=== PATIENT | female | born 1980 | race Hispanic/Latino ===

== ENCOUNTER 2016-11-11 23:11 | Inpatient (IN) | payer MEDICAID ==
[2016-11-11 23:42] LABS: RBC URINE 4 /hpf (0-3); URINE BACTERIA MANY (<OCC); URINE BILIRUBIN NEGATIVE (NEGATIVE); URINE BLOOD 1+ (NEGATIVE); URINE COLOR Yellow (YELLOW); URINE GLUCOSE (UA) NORMAL (Normal); URINE KETONE 1+ mg/dL (NEGATIVE); URINE LEUKOCYTE ESTERASE 3+ Leu/uL (Negative); URINE PROTEIN 1+ mg/dL (NEGATIVE); URINE UROBILINOGEN NORMAL mg/dL (0.2-1.0); WBC URINE 87 /hpf (0-5)
[2016-11-11] MEDS ORDERED: Sodium Chloride 0.9% 1,000 ML IV ONE (23:50)
[2016-11-11] MEDS ORDERED: Iohexol 240 (50 ml) PO ONE (23:53)
[2016-11-12] MEDS ORDERED: Nalbuphine 20 mg/ml Inj (1 ml) IVP STA ×2 (00:11→04:07)
[2016-11-12] MEDS ORDERED: Sodium Chloride 0.9% 1,000 ML ONE ×2 (00:13→06:28)
[2016-11-12] MEDS ORDERED: Iohexol 240 (50 ml) ONE (00:13)
[2016-11-12] MEDS ORDERED: Iohexol 350mg/ml 100 ML ONE (01:00)
--- NOTE | 2016-11-12 01:11 | C.PDOC ---
History Of Present Illness 36 year old female who presents to the ER with a complaint of RUQ pain radiating to the back since yesterday associated with some nausea. Patient denies vomiting, fever, chills, or diarrhea. Chief Complaint (Nursing): Abdominal Pain History Per: Patient History/Exam Limitations: no limitations Onset/Duration Of Symptoms: Hrs Current Symptoms Are (Timing): Still Present Location Of Pain/Discomfort: RUQ Radiation Of Pain To:: None Quality Of Discomfort: Unable To Describe Associated Symptoms: Nausea, Back Pain. denies: Fever, Chills, Vomiting, Diarrhea Exacerbating Factors: None Alleviating Factors: None Recent travel outside of the [place]: No Abnormal Vaginal Bleeding: No Past Medical History Reviewed: Historical Data, Nursing Documentation, Vital Signs Vital Signs: Last Vital Signs Temp 98.2 F 11/12/16 02:17 Pulse 89 11/12/16 02:17 Resp 20 11/12/16 02:17 BP 123/70 11/12/16 02:17 Pulse Ox 98 11/12/16 04:09 - Medical History PMH: Anxiety, Asthma, HTN, Kidney Stones, Pancreatitis, Chronic Kidney Disease, Seizures Surgical History: No Surg Hx - [facility] Procedures INSERTION OF INFUSION DEV INTO R SUBCLAV VEIN, PERC APPROACH (06/23/15) ULTRASONOGRAPHY OF RIGHT SUBCLAVIAN VEIN, GUIDANCE (06/23/15) Family History: States: Unknown Family Hx - Social History Hx Tobacco Use: Yes Hx Alcohol Use: Yes Hx Substance Use: Yes (HEROIN) - Immunization History Hx Tetanus Toxoid Vaccination: No Hx Influenza Vaccination: Yes Hx Pneumococcal Vaccination: No Review Of Systems Constitutional: Negative for: Fever, Chills Gastrointestinal: Positive for: Nausea, Abdominal Pain. Negative for: Vomiting , Diarrhea Musculoskeletal: Positive for: Back Pain Physical Exam - Physical Exam Appears: Non-toxic, Other (Mild distress) Skin: Normal Color, Warm, Dry Head: Atraumatic, Normacephalic Oral Mucosa: Moist Neck: Normal, Supple Chest: Symmetrical, No Tenderness Cardiovascular: Rhythm Regular, No Murmur Respiratory: Normal Breath Sounds, No Rales, No Rhonchi, No Wheezing Gastrointestinal/Abdominal: Soft, Tenderness (RUQ), No Guarding, No Rebound Back: Normal Inspection, No Vertebral Tenderness, No Paraspinal Tenderness Neurological/Psych: Oriented x3, Normal Speech, Normal Cognition ED Course And Treatment - Laboratory Results Result Diagrams: 11/12/16 01:30 11/12/16 01:30 O2 Sat by Pulse Oximetry: 98 (Room air) Pulse Ox Interpretation: Normal Progress Note: CT abd/pel and blood work ordered. Zofran, nubain, and IV fluids administered. Disposition Discussed With DrChato: Aleksey Cedeno Doctor Will See Patient In The: Hospital Counseled Patient/Family Regarding: Diagnosis - Disposition Disposition: HOSPITALIZED Disposition Time: 04:08 Condition: STABLE Forms: [employer] (Lebanese) - POA Present On Arrival: None - Clinical Impression Clinical Impression: Pyelonephritis, Right sided abdominal pain - Scribe Statement The provider has reviewed the documentation as recorded by the Scribe Sharif Tucker All medical record entries made by the Scribe were at my direction and personally dictated by me. I have reviewed the chart and agree that the record accurately reflects my personal performance of the history, physical exam, medical decision making, and the department course for this patient. I have also personally directed, reviewed, and agree with the discharge instructions and disposition.
[2016-11-12 01:35] LABS: BASO % 0.4 % (0.0-2.0); EOS % 0.2 % (0.0-4.0); HEMATOCRIT 30.6 % (34.0-47.0); LYMPH % 17.2 % (20.0-40.0); MEAN CELL VOLUME 93.4 fL (81.0-99.0); MEAN CORPUSCULAR HEMOGLOBIN 30.8 pg (27.0-31.0); MONO # 0.8 K/uL (0.0-0.8); MONO % 13.4 % (0.0-10.0); RED CELL DISTRIBUTION WIDTH 13.8 % (11.5-14.5)
[2016-11-12 01:41] LABS: WHITE BLOOD COUNT 5.9 K/uL (4.8-10.8)
[2016-11-12 02:11] LABS: ALB/GLOB RATIO 0.8 (1.0-2.1); ALKALINE PHOSPHATASE 57 U/L (38-126); ALT/SGPT 20 U/L (9-52); AST/SGOT 24 U/L (14-36); BILIRUBIN,TOTAL 0.6 mg/dL (0.2-1.3); BLOOD UREA NITROGEN 4 mg/dL (7-17); CALCIUM 6.4 mg/dl (8.6-10.4); CARBON DIOXIDE 14 mmol/L (22-30); CHLORIDE 111 mmol/L (98-107); GFR AFRICAN-AMERICAN > 60; GLUCOSE,RANDOM 74 mg/dL (65-105); SODIUM 138 mmol/L (132-148); TOTAL PROTEIN 5.6 g/dL (6.3-8.3)
[2016-11-12 02:13] LABS: POTASSIUM 3.1 mmol/L (3.6-5.2)
[2016-11-12] MEDS ORDERED: Ciprofloxacin 400mg/200ml D5W 400 MG/200 ML BAG IVPB STA (03:32)
--- NOTE | 2016-11-12 03:52 | CT ---
EXAM: CT Abdomen and Pelvis With Intravenous Contrast CLINICAL HISTORY: 36 years old, female; Pain; Abdominal pain; Patient HX: 3; Additional info: Upper abd pain TECHNIQUE: Axial computed tomography images of the abdomen and pelvis with intravenous contrast. This CT exam was performed using one or more of the following dose reduction techniques: automated exposure control, adjustment of the mA and/or kV according to patient size, and/or use of iterative reconstruction technique. Coronal and sagittal reformatted images were created and reviewed. CONTRAST: 100 mL of [id number] administered intravenously. EXAM DATE/TIME: 11/11/2016 11:54 PM COMPARISON: CT - ABD PELVIS IV CONTRAST ONLY 07/02/2015 2:08:12 PM FINDINGS: There is hepatosplenomegaly. Left upper quadrant varices are present. The pancreas is normal. The previously described hypoattenuating area the pancreatic tail is not well seen on current study. No gallstones. There is right perinephric stranding. There are faint areas of low attenuation in the right kidney new since prior. No hydronephrosis. The bowel appears normal. The appendix is not identified however there are no secondary signs of appendicitis such as pericecal stranding. There is artifact secondary to right femoral hardware. Minimal spondylolisthesis L4-5 unchanged. IMPRESSION: Right perinephric stranding. Faint areas of low attenuation in the right kidney. Findings supportive of right pyelonephritis. Nonacute findings as described in the body of the report.
[2016-11-12] MEDS: Sodium Chloride 0.9% 1,000 ML IV SCH (06:25)
[2016-11-12] MEDS: Ciprofloxacin 400mg/200ml D5W 400 MG/200 ML BAG IVPB SCH ×2 (07:38→16:28)
[2016-11-12] MEDS ORDERED: Potassium Chloride 20 mEq ER Tab PO SCH ×2 (08:45→12:01)
[2016-11-12] MEDS ORDERED: Potassium Chloride 20 mEq ER Tab PO ONE (08:52)
[2016-11-12] MEDS ORDERED: [UNRECOGNIZED DRUG - OTHER] IV SCH (17:30)
[2016-11-12] MEDS ORDERED: THIAMINE IV SCH (17:30)
[2016-11-12] MEDS ORDERED: MULTIVITAMIN IV SCH (17:30)
[2016-11-12] MEDS ORDERED: FOLIC ACID IV SCH (17:30)
[2016-11-13] MEDS: Sodium Chloride 0.9% 1,000 ML IV SCH ×2 (01:02→14:59)
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
[2016-11-13] MEDS: Ciprofloxacin 400mg/200ml D5W 400 MG/200 ML BAG IVPB SCH ×2 (05:29→17:22)
[2016-11-13 06:16] LABS: BASO % 0.1 % (0.0-2.0); EOS % 0.5 % (0.0-4.0); HEMATOCRIT 32.2 % (34.0-47.0); LYMPH # 1.7 K/uL (1.0-4.3); LYMPH % 31.2 % (20.0-40.0); MEAN CELL VOLUME 90.7 fL (81.0-99.0); MEAN CORPUSCULAR HEMOGLOBIN 30.8 pg (27.0-31.0); MEAN PLATELET VOLUME 8.9 fL (7.2-11.7); MONO # 0.8 K/uL (0.0-0.8); RED CELL DISTRIBUTION WIDTH 13.5 % (11.5-14.5); WHITE BLOOD COUNT 5.5 K/uL (4.8-10.8)
[2016-11-13 06:30] LABS: ALKALINE PHOSPHATASE 65 U/L (38-126); ALT/SGPT 24 U/L (9-52); AST/SGOT 13 U/L (14-36); BILIRUBIN,TOTAL 0.1 mg/dL (0.2-1.3); BLOOD UREA NITROGEN 6 mg/dL (7-17); CALCIUM 7.9 mg/dl (8.6-10.4); CARBON DIOXIDE 26 mmol/L (22-30); CHLORIDE 103 mmol/L (98-107); GFR AFRICAN-AMERICAN > 60; GLUCOSE,RANDOM 124 mg/dL (65-105); POTASSIUM 4.2 mmol/L (3.6-5.2); SODIUM 135 mmol/L (132-148); TOTAL PROTEIN 5.8 g/dL (6.3-8.3)
[2016-11-13] MEDS: Potassium Chloride 20 mEq ER Tab PO SCH (10:48)
--- NOTE | 2016-11-14 01:46 | CP.PCM.PN ---
Subjective - Date & Time of Evaluation Date of Evaluation: 11/13/16 Time of Evaluation: 11:02 - Subjective Subjective: FEELS R FLANK PAIN, NO NAUSEA, UDOA POSITIVE Objective - Vital Signs/Intake and Output Vital Signs (last 24 hours): Temp Pulse Resp BP Pulse Ox 98.8 F 102 H 20 115/70 98 11/13/16 23:15 11/13/16 23:15 11/13/16 23:15 11/13/16 23:15 11/13/16 23:15 Intake and Output: 11/13/16 11/14/16 18:59 06:59 Intake Total 1400 Balance 1400 - Medications Medications: Current Medications Acetaminophen (Tylenol 325mg Tab) 650 mg PO Q6 PRN PRN Reason: Pain, moderate (4-7) Last Admin: 11/13/16 03:11 Dose: 650 mg Amitriptyline HCl (Elavil) 10 mg PO HS PRN PRN Reason: Insomnia Stop: 11/14/16 04:44 Last Admin: 11/13/16 21:41 Dose: 10 mg Folic Acid (Folic Acid) 1 mg PO DAILY [facility] Gabapentin (Neurontin) 300 mg PO TID [facility] Last Admin: 11/13/16 17:21 Dose: 300 mg Sodium Chloride (Sodium Chloride 0.9%) 1,000 mls @ 100 mls/hr IV .Q10H [facility] Last Admin: 11/13/16 14:59 Dose: 100 mls/hr Ciprofloxacin (Cipro 400mg/200ml Dsw) 400 mg in 200 mls @ 133 mls/hr IVPB Q12H [facility] Last Admin: 11/13/16 17:22 Dose: 133 mls/hr Lorazepam (Ativan) 1 mg IVP Q6H PRN PRN Reason: Anxiety Last Admin: 11/13/16 23:45 Dose: 1 mg Potassium Chloride (K-Dur 20 Meq Er Tab) 20 meq PO DAILY [facility] Stop: 11/15/16 10:01 Last Admin: 11/13/16 10:48 Dose: 20 meq Thiamine HCl (Vitamin B1 Tab) 100 mg PO DAILY [facility] Last Admin: 11/13/16 11:00 Dose: 100 mg - Labs Labs: 11/13/16 06:02 11/13/16 06:02 - Constitutional Appears: Non-toxic, No Acute Distress - Head Exam Head Exam: ATRAUMATIC, NORMAL INSPECTION, NORMOCEPHALIC - Eye Exam Eye Exam: EOMI, Normal appearance Pupil Exam: NORMAL ACCOMODATION - ENT Exam ENT Exam: Mucous Membranes Moist, Normal Exam, Normal Oropharynx, TM's Normal Bilaterally - Respiratory Exam Respiratory Exam: Clear to Ausculation Bilateral, NORMAL BREATHING PATTERN - Cardiovascular Exam Cardiovascular Exam: REGULAR RHYTHM, +S1, +S2 - GI/Abdominal Exam GI & Abdominal Exam: Normal Bowel Sounds - Rectal Exam Rectal Exam: NORMAL INSPECTION Assessment and Plan (1) Pyelonephritis Assessment & Plan: ON ANTIBIOTICS Status: Acute (2) Alcohol intoxication Status: Resolved (3) Anxiety Status: Chronic
[2016-11-14] MEDS: Ciprofloxacin 400mg/200ml D5W 400 MG/200 ML BAG IVPB SCH ×2 (04:51→18:12)
[2016-11-14] MEDS: Sodium Chloride 0.9% 1,000 ML IV SCH ×3 (06:54→21:22)
[2016-11-14] MEDS: Potassium Chloride 20 mEq ER Tab PO SCH (09:39)
[2016-11-14 20:14] LABS: RBC URINE 1 /hpf (0-3); URINE BILIRUBIN NEGATIVE (NEGATIVE); URINE BLOOD NEGATIVE (NEGATIVE); URINE COLOR Yellow (YELLOW); URINE GLUCOSE (UA) NORMAL (Normal); URINE KETONE NEGATIVE (NEGATIVE); URINE LEUKOCYTE ESTERASE NEG Leu/uL (Negative); URINE PROTEIN NEGATIVE (NEGATIVE); URINE UROBILINOGEN NORMAL mg/dL (0.2-1.0); WBC URINE 2 /hpf (0-5)
--- NOTE | 2016-11-14 23:56 | CP.PCM.PN ---
Subjective - Date & Time of Evaluation Date of Evaluation: 11/14/16 Time of Evaluation: 11:14 - Subjective Subjective: PAIN IN L FLANK, NO SOB, ANXIOUS Objective - Vital Signs/Intake and Output Vital Signs (last 24 hours): Temp Pulse Resp BP Pulse Ox 97.6 F 70 20 105/65 97 11/14/16 17:47 11/14/16 17:47 11/14/16 17:47 11/14/16 17:47 11/14/16 17:47 Intake and Output: 11/14/16 11/15/16 18:59 06:59 Intake Total 1000 Balance 1000 - Medications Medications: Current Medications Acetaminophen (Tylenol 325mg Tab) 650 mg PO Q6 PRN PRN Reason: Pain, moderate (4-7) Last Admin: 11/14/16 04:50 Dose: 650 mg Chlordiazepoxide (Librium) 25 mg PO Q6 [facility] Last Admin: 11/14/16 18:12 Dose: 25 mg Folic Acid (Folic Acid) 1 mg PO DAILY [facility] Last Admin: 11/14/16 09:39 Dose: 1 mg Gabapentin (Neurontin) 300 mg PO TID [facility] Last Admin: 11/14/16 18:12 Dose: 300 mg Sodium Chloride (Sodium Chloride 0.9%) 1,000 mls @ 100 mls/hr IV .Q10H [facility] Last Admin: 11/14/16 21:22 Dose: 100 mls/hr Lorazepam (Ativan) 1 mg IVP Q6H PRN PRN Reason: Anxiety Last Admin: 11/14/16 18:55 Dose: 1 mg Potassium Chloride (K-Dur 20 Meq Er Tab) 20 meq PO DAILY [facility] Stop: 11/15/16 10:01 Last Admin: 11/14/16 09:39 Dose: 20 meq Thiamine HCl (Vitamin B1 Tab) 100 mg PO DAILY [facility] Last Admin: 11/14/16 09:39 Dose: 100 mg - Labs Labs: 11/13/16 06:02 11/13/16 06:02 - Constitutional Appears: Non-toxic, No Acute Distress - Head Exam Head Exam: ATRAUMATIC, NORMAL INSPECTION, NORMOCEPHALIC - Eye Exam Eye Exam: Normal appearance, PERRL Pupil Exam: NORMAL ACCOMODATION - Respiratory Exam Respiratory Exam: Clear to Ausculation Bilateral, NORMAL BREATHING PATTERN - GI/Abdominal Exam GI & Abdominal Exam: Soft, Normal Bowel Sounds - Psychiatric Exam Psychiatric exam: Anxious, Depressed, Flat Affect - Skin Skin Exam: Intact Assessment and Plan (1) Pyelonephritis Assessment & Plan: ESBL POSITIVE ORGANISMS, ON ISOLATION AND MACROBID Status: Acute (2) Alcohol intoxication Status: Resolved (3) Anxiety Status: Chronic
[2016-11-15] MEDS: Sodium Chloride 0.9% 1,000 ML IV SCH (03:37)
[2016-11-15] MEDS: Potassium Chloride 20 mEq ER Tab PO SCH (09:22)
--- NOTE | 2016-11-15 18:34 | CP.PCM.CON ---
History of Present Illness - History of Present Illness History of Present Illness: Please see Initial Psych consult note. Thank you Past Patient History - Infectious Disease Hx of Infectious Diseases: None - Past Medical History & Family History Past Medical History?: Yes - Past Social History Smoking Status: Heavy Smoker > 10 Cigarettes Daily - CARDIAC Hx Cardiac Disorders: Yes Hx Hypertension: Yes - PULMONARY Hx Respiratory Disorders: Yes Hx Asthma: Yes - NEUROLOGICAL Hx Neurological Disorder: Yes Hx Seizures: Yes - HEENT Hx HEENT Problems: No - RENAL Hx Chronic Kidney Disease: Yes Hx Kidney Stones: Yes - ENDOCRINE/METABOLIC Hx Endocrine Disorders: No - HEMATOLOGICAL/ONCOLOGICAL Hx Human Immunodeficiency Virus (HIV): No - INTEGUMENTARY Hx Dermatological Problems: No - MUSCULOSKELETAL/RHEUMATOLOGICAL Hx Musculoskeletal Disorders: No Hx Falls: No Other/Comment: right hip sx (adelfo and plates) - GASTROINTESTINAL Hx Gastrointestinal Disorders: No Hx Pancreatitis: Yes - GENITOURINARY/GYNECOLOGICAL Hx Genitourinary Disorders: No Hx Sexually Transmitted Disorders: No - PSYCHIATRIC Hx Anxiety: Yes Hx Substance Use: Yes (HEROIN) - SURGICAL HISTORY Hx Orthopedic Surgery: Yes (hip surgery) - ANESTHESIA Hx Anesthesia: Yes Hx Anesthesia Reactions: No Hx Malignant Hyperthermia: No Meds Allergies/Adverse Reactions: Allergies Allergy/AdvReac Type Severity Reaction Status Date / Time Fish Containing Products Allergy Intermediate Verified 06/23/15 12:24 ketorolac tromethamine Allergy Intermediate Verified 06/23/15 12:23 [From Toradol] morphine Allergy Intermediate Verified 06/23/15 12:23 - Medications Medications: Current Medications Acetaminophen (Tylenol 325mg Tab) 650 mg PO Q6 PRN PRN Reason: Pain, moderate (4-7) Last Admin: 11/14/16 04:50 Dose: 650 mg Chlordiazepoxide (Librium) 25 mg PO Q6 [facility] Last Admin: 11/15/16 13:00 Dose: 25 mg Folic Acid (Folic Acid) 1 mg PO DAILY [facility] Last Admin: 11/15/16 09:21 Dose: 1 mg Gabapentin (Neurontin) 300 mg PO TID [facility] Last Admin: 11/15/16 13:39 Dose: 300 mg Lorazepam (Ativan) 1 mg IVP Q6H PRN PRN Reason: Anxiety Last Admin: 11/15/16 15:15 Dose: 1 mg Nitrofurantoin Macrocrystals (Macrobid) 100 mg PO Q12H [facility] Last Admin: 11/15/16 12:30 Dose: 100 mg Thiamine HCl (Vitamin B1 Tab) 100 mg PO DAILY [facility] Last Admin: 11/15/16 09:21 Dose: 100 mg Results - Vital Signs Recent Vital Signs: Last Vital Signs Temp 97.6 F 11/15/16 16:00 Pulse 60 11/15/16 16:00 Resp 20 11/15/16 16:00 BP 94/58 L 11/15/16 16:00 Pulse Ox 96 11/15/16 16:00 - Labs Result Diagrams: 11/13/16 06:02 11/13/16 06:02 Labs: Laboratory Results - last 24 hr 11/14/16 19:57 Urine Color Yellow Urine Clarity Clear Urine pH 7.0 Ur Specific [place] 1.010 Urine Protein Negative Urine Glucose (UA) Normal Urine Ketones Negative Urine Blood Negative Urine Nitrate Negative Urine Bilirubin Negative Urine Urobilinogen Normal Ur Leukocyte Esterase Neg Urine WBC (Auto) 2 Urine RBC (Auto) 1 Ur Squamous Epith Cells 7 H
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
--- NOTE | 2016-11-15 22:41 | CP.PCM.PN ---
Subjective - Date & Time of Evaluation Date of Evaluation: 11/15/16 Time of Evaluation: 11:19 - Subjective Subjective: SEEN BY PSYCHE , D/W DR KAT Objective - Vital Signs/Intake and Output Vital Signs (last 24 hours): Temp Pulse Resp BP Pulse Ox 97.6 F 60 20 94/58 L 96 11/15/16 16:00 11/15/16 16:00 11/15/16 16:00 11/15/16 16:00 11/15/16 16:00 - Medications Medications: Current Medications Acetaminophen (Tylenol 325mg Tab) 650 mg PO Q6 PRN PRN Reason: Pain, moderate (4-7) Last Admin: 11/15/16 20:07 Dose: 650 mg Chlordiazepoxide (Librium) 25 mg PO Q6 [facility] Last Admin: 11/15/16 18:34 Dose: 25 mg Folic Acid (Folic Acid) 1 mg PO DAILY [facility] Last Admin: 11/15/16 09:21 Dose: 1 mg Gabapentin (Neurontin) 300 mg PO TID [facility] Last Admin: 11/15/16 18:34 Dose: 300 mg Lorazepam (Ativan) 1 mg IVP Q6H PRN PRN Reason: Anxiety Last Admin: 11/15/16 21:18 Dose: 1 mg Nitrofurantoin Macrocrystals (Macrobid) 100 mg PO Q12H [facility] Last Admin: 11/15/16 12:30 Dose: 100 mg Thiamine HCl (Vitamin B1 Tab) 100 mg PO DAILY [facility] Last Admin: 11/15/16 09:21 Dose: 100 mg - Labs Labs: 11/13/16 06:02 11/13/16 06:02 - Constitutional Appears: Non-toxic, No Acute Distress - Head Exam Head Exam: ATRAUMATIC, NORMAL INSPECTION, NORMOCEPHALIC - Eye Exam Eye Exam: EOMI, Normal appearance, PERRL Pupil Exam: NORMAL ACCOMODATION - ENT Exam ENT Exam: Mucous Membranes Moist, Normal Exam, Normal Oropharynx, TM's Normal Bilaterally - Neck Exam Neck Exam: Normal Inspection - Respiratory Exam Respiratory Exam: Clear to Ausculation Bilateral, NORMAL BREATHING PATTERN - Cardiovascular Exam Cardiovascular Exam: REGULAR RHYTHM, +S1, +S2 - GI/Abdominal Exam GI & Abdominal Exam: Normal Bowel Sounds Assessment and Plan (1) Pyelonephritis Status: Acute (2) Alcohol intoxication Status: Resolved (3) Anxiety Status: Chronic
[2016-11-16 08:20] VITALS: RESP 18; TEMP 97.9; O2SAT 98
[2016-11-16] MEDS ORDERED: Iohexol 350mg/ml 100 ML ONE (15:34)
--- NOTE | 2016-11-16 15:36 | CP.PCM.PN ---
Subjective - Date & Time of Evaluation Date of Evaluation: 11/16/16 Time of Evaluation: 11:25 - Subjective Subjective: Pt seen today , alert, awake, ox3, c/o mild R flank pain , denies any N/V/D a febrile Objective - Vital Signs/Intake and Output Vital Signs (last 24 hours): Temp Pulse Resp BP Pulse Ox 97.9 F 67 18 129/82 98 11/16/16 07:10 11/16/16 07:10 11/16/16 07:10 11/16/16 07:10 11/16/16 07:10 - Medications Medications: Current Medications Acetaminophen (Tylenol 325mg Tab) 650 mg PO Q6 PRN PRN Reason: Pain, moderate (4-7) Last Admin: 11/16/16 08:13 Dose: 650 mg Folic Acid (Folic Acid) 1 mg PO DAILY [facility] Last Admin: 11/16/16 09:34 Dose: 1 mg Gabapentin (Neurontin) 300 mg PO TID [facility] Last Admin: 11/16/16 14:51 Dose: Not Given Nitrofurantoin Macrocrystals (Macrobid) 100 mg PO Q12H [facility] Last Admin: 11/16/16 12:12 Dose: 100 mg Thiamine HCl (Vitamin B1 Tab) 100 mg PO DAILY [facility] Last Admin: 11/16/16 09:34 Dose: 100 mg - Labs Labs: 11/13/16 06:02 11/13/16 06:02 - Constitutional Appears: Well, No Acute Distress - Extremities Exam Extremities Exam: Full ROM Assessment and Plan - Assessment and Plan (Free Text) Assessment: A/P 36 yr old female admitted for abdominal pain/ pylonephritis urine culture - + for E coli and sensitive to macrobid and pt started on macrobid repeat u/a - negative D/W with Dr. cedeno, stable for discharge home today with macrobid and f/u with Dr. Cedeno office in 1 week discharge plan discussed with patient
[2016-11-16 17:22] VITALS: BP 106/67; PULSE 68
--- NOTE | 2016-11-16 22:34 | CP.PCM.DIS ---
Provider - Provider Date of Admission: 11/12/16 04:37 Attending physician: Aleksey Cedeno MD Time Spent in preparation of Discharge (in minutes): 30 Diagnosis - Discharge Diagnosis (1) Pyelonephritis Status: Acute Priority: High (2) Alcohol intoxication Status: Resolved Priority: High (3) Anxiety Status: Chronic Priority: Medium Hospital Course - Lab Results Lab Results: Micro Results 11/12/16 Unknown Urine Urine Culture - Final Escherichia Coli Most Recent Lab Values WBC 5.5 K/uL (4.8-10.8) 11/13/16 06:02 RBC 3.55 Mil/uL (3.80-5.20) L 11/13/16 06:02 Hgb 10.9 g/dL (11.0-16.0) L 11/13/16 06:02 Hct 32.2 % (34.0-47.0) L 11/13/16 06:02 MCV 90.7 fL (81.0-99.0) D 11/13/16 06:02 MCH 30.8 pg (27.0-31.0) 11/13/16 06:02 MCHC 34.0 g/dL (33.0-37.0) 11/13/16 06:02 RDW 13.5 % (11.5-14.5) 11/13/16 06:02 Plt Count 145 K/uL (130-400) 11/13/16 06:02 MPV 8.9 fL (7.2-11.7) 11/13/16 06:02 Neut % (Auto) 53.2 % (50.0-75.0) 11/13/16 06:02 Lymph % (Auto) 31.2 % (20.0-40.0) 11/13/16 06:02 Crockett % (Auto) 15.0 % (0.0-10.0) H 11/13/16 06:02 Eos % (Auto) 0.5 % (0.0-4.0) 11/13/16 06:02 Baso % (Auto) 0.1 % (0.0-2.0) 11/13/16 06:02 Neut # 2.9 K/uL (1.8-7.0) 11/13/16 06:02 Lymph # 1.7 K/uL (1.0-4.3) 11/13/16 06:02 Crockett # 0.8 K/uL (0.0-0.8) 11/13/16 06:02 Eos # 0.0 K/uL (0.0-0.7) 11/13/16 06:02 Baso # 0.0 K/uL (0.0-0.2) 11/13/16 06:02 Sodium 135 mmol/L (132-148) 11/13/16 06:02 Potassium 4.2 mmol/L (3.6-5.2) 11/13/16 06:02 Chloride 103 mmol/L (98-107) 11/13/16 06:02 Carbon Dioxide 26 mmol/L (22-30) 11/13/16 06:02 Anion Gap 10 (10-20) 11/13/16 06:02 BUN 6 mg/dL (7-17) L 11/13/16 06:02 Creatinine 0.6 MG/DL (0.7-1.2) L 11/13/16 06:02 Est GFR ( Amer) > 60 11/13/16 06:02 Est GFR (Non-Af Amer) > 60 11/13/16 06:02 Random Glucose 124 mg/dL (65-105) H 11/13/16 06:02 Calcium 7.9 mg/dl (8.6-10.4) L 11/13/16 06:02 Total Bilirubin 0.1 mg/dL (0.2-1.3) L 11/13/16 06:02 AST 13 U/L (14-36) L D 11/13/16 06:02 ALT 24 U/L (9-52) 11/13/16 06:02 Alkaline Phosphatase 65 U/L (38-126) 11/13/16 06:02 Total Protein 5.8 g/dL (6.3-8.3) L 11/13/16 06:02 Albumin 2.9 g/dL (3.5-5.0) L 11/13/16 06:02 Globulin 2.9 gm/dL (2.2-3.9) 11/13/16 06:02 Albumin/Globulin Ratio 1.0 (1.0-2.1) 11/13/16 06:02 Lipase < 10 U/L (23-300) L 11/12/16 01:30 Urine Color Yellow (YELLOW) 11/14/16 19:57 Urine Clarity Clear (Clear) 11/14/16 19:57 Urine pH 7.0 (5.0-8.0) 11/14/16 19:57 Ur Specific Fountain 1.010 (1.003-1.030) 11/14/16 19:57 Urine Protein Negative mg/dL (NEGATIVE) 11/14/16 19:57 Urine Glucose (UA) Normal mg/dL (Normal) 11/14/16 19:57 Urine Ketones Negative mg/dL (NEGATIVE) 11/14/16 19:57 Urine Blood Negative (NEGATIVE) 11/14/16 19:57 Urine Nitrate Negative (NEGATIVE) 11/14/16 19:57 Urine Bilirubin Negative (NEGATIVE) 11/14/16 19:57 Urine Urobilinogen Normal mg/dL (0.2-1.0) 11/14/16 19:57 Ur Leukocyte Esterase Neg Wilder/uL (Negative) 11/14/16 19:57 Urine WBC (Auto) 2 /hpf (0-5) 11/14/16 19:57 Urine RBC (Auto) 1 /hpf (0-3) 11/14/16 19:57 Ur Squamous Epith Cells 7 /hpf (0-5) H 11/14/16 19:57 Urine Bacteria Many (<OCC) H 11/11/16 23:35 Urine HCG, Qual Negative (NEGATIVE) 11/11/16 23:35 Urine Opiates Screen Positive (NEGATIVE) 11/12/16 21:49 Urine Methadone Screen Positive (NEGATIVE) 11/12/16 21:49 Ur Barbiturates Screen Negative (NEGATIVE) 11/12/16 21:49 Ur Phencyclidine Scrn Positive (NEGATIVE) 11/12/16 21:49 Ur Amphetamines Screen Negative (NEGATIVE) 11/12/16 21:49 U Benzodiazepines Scrn Negative (NEGATIVE) 11/12/16 21:49 U Oth Cocaine Metabols Negative (NEGATIVE) 11/12/16 21:49 U Cannabinoids Screen Negative (NEGATIVE) 11/12/16 21:49 - Hospital Course Hospital Course: ADMITTED WITH ACUTE PYELONEPHRITIS AND SHE HAS ESBL + E.COLI, SENSITIVE OT MACROBID , FEESL BETTER, AND SHE IS FOR DISCHARGE Discharge Exam - Head Exam Head Exam: ATRAUMATIC, NORMAL INSPECTION, NORMOCEPHALIC - Eye Exam Eye Exam: EOMI, Normal appearance, PERRL Pupil Exam: NORMAL ACCOMODATION - Neck Exam Neck exam: Normal Inspection - Respiratory Exam Respiratory Exam: NORMAL BREATHING PATTERN - Cardiovascular Exam Cardiovascular Exam: REGULAR RHYTHM, +S1, +S2 - GI/Abdominal Exam GI & Abdominal Exam: Normal Bowel Sounds, Unremarkable - Rectal Exam Rectal Exam: NORMAL INSPECTION - Extremities Exam Extremities exam: normal capillary refill, pedal pulses present - Neurological Exam Neurological exam: Alert, CN II-XII Intact, Normal Gait, Oriented x3, Reflexes Normal - Psychiatric Exam Psychiatric exam: Anxious - Skin Skin Exam: Intact Discharge Plan - Discharge Medications Prescriptions: Nitrofurantoin Macrocrystals [Macrobid] 100 mg PO Q12H #10 cap - Follow Up Plan Condition: STABLE Disposition: HOME/ ROUTINE Instructions: Nitrofurantoin Combination (By mouth), Urinary Tract Infection in Women (DC), Acute Pyelonephritis (DC) Additional Instructions: Please f/u with Dr. Cedeno office in 1 week continue medication as per Med. Rec. Referrals: Aleksey Cedeno MD [Staff Provider] -
== END 2016-11-16 17:40 | disposition home or self-care (01) | DRG 320 ==
LOC: C.ER 23:11 → C.9E 11-12 04:37 → C.6T 11-12 12:16
PROVIDERS: ADMIT Internal Medicine; ATTEND Internal Medicine
DX: N10 Acute pyelonephritis (principal); R56.9 Unspecified convulsions; F11.90 Opioid use, unspecified, uncomplicated; F10.120 Alcohol abuse with intoxication, uncomplicated; F41.9 Anxiety disorder, unspecified; N18.9 Chronic kidney disease, unspecified; J45.909 Unspecified asthma, uncomplicated; I12.9 Hypertensive chronic kidney disease with stage 1 through stage 4 chronic kidney disease, or unspecified chronic kidney disease; F17.210 Nicotine dependence, cigarettes, uncomplicated; Z87.442 Personal history of urinary calculi; Y90.9 Presence of alcohol in blood, level not specified; B96.20 Unspecified Escherichia coli [E. coli] as the cause of diseases classified elsewhere

== ENCOUNTER 2017-01-30 02:11 | Emergency (ER) | payer MEDICAID ==
[2017-01-30] MEDS ORDERED: Amoxicillin-Clav 875-125 mg Tab PO STA (02:55)
[2017-01-30] MEDS ORDERED: Amoxicillin-Clav 875-125 mg Tab PO ONE (03:01)
--- NOTE | 2017-01-30 03:16 | C.PDOC ---
History Of Present Illness 36 year old female presents to the ER for a complaint of a painful rash since Wednesday night. Patient reports she smoked "2-3 pulls" of an unknown substance from an unknown man who occasionally smokes in front of her house. Patient states a few hours after smoking she "did not feel right". Denies Hx of recent heroin use, fever, or chills. Time Seen by Provider: 01/30/17 02:22 Chief Complaint (Nursing): Abnormal Skin Integrity History Per: Patient History/Exam Limitations: no limitations Onset/Duration Of Symptoms: Days Current Symptoms Are (Timing): Still Present Quality Of Symptoms: Other (Irritating rash) Recent travel outside of the [place]: No Past Medical History Reviewed: Historical Data, Nursing Documentation, Vital Signs Vital Signs: Last Vital Signs Temp 97.9 F 01/30/17 03:18 Pulse 114 H 01/30/17 03:18 Resp 20 01/30/17 03:18 BP 133/86 01/30/17 03:18 Pulse Ox 95 01/30/17 03:18 - Medical History PMH: Anxiety, Asthma, HTN, Kidney Stones, Pancreatitis, Chronic Kidney Disease, Seizures Surgical History: No Surg Hx - [facility] Procedures INSERTION OF INFUSION DEV INTO R SUBCLAV VEIN, PERC APPROACH (06/23/15) ULTRASONOGRAPHY OF RIGHT SUBCLAVIAN VEIN, GUIDANCE (06/23/15) Family History: States: Unknown Family Hx - Social History Hx Tobacco Use: Yes Hx Alcohol Use: Yes Hx Substance Use: Yes (HEROIN) - Immunization History Hx Tetanus Toxoid Vaccination: No Hx Influenza Vaccination: Yes Hx Pneumococcal Vaccination: No Review Of Systems Constitutional: Negative for: Fever, Chills Skin: Positive for: Rash Physical Exam - Physical Exam Appears: Non-toxic Skin: Warm, Dry, Rash (Multiple open, tender, erythematous, wounds to the bilateral extremities. Plaque like, erythematous, tender, scales to dorsal hands with yellow crusting and honey combing.) Head: Atraumatic, Normacephalic Eye(s): bilateral: Normal Inspection, EOMI Oral Mucosa: Moist Chest: Symmetrical, No Tenderness Cardiovascular: Rhythm Regular Respiratory: Normal Breath Sounds, No Rales, No Rhonchi, No Wheezing Gastrointestinal/Abdominal: Soft, No Tenderness Neurological/Psych: Oriented x3, Normal Speech, Normal Cognition ED Course And Treatment O2 Sat by Pulse Oximetry: 98 (Room air) Pulse Ox Interpretation: Normal Medical Decision Making Medical Decision Making: Augmentin and benadryl administered. Patient evaluated by Dr. Zeng, who believes patient is safe to be discharged home on antibiotics and follow up with PMD. Disposition - Disposition Referrals: [facility] at [facility] [Outside] Disposition: HOME/ ROUTINE Disposition Time: 03:06 Condition: GOOD Additional Instructions: Follow up with the medical doctor within 1-2 days. Return if worsened. Prescriptions: Amoxicillin/Clavulanate [Augmentin 875 MG-125 MG] 1 tab PO BID #20 tab Mupirocin 2% Cream [Bactroban 2%] 30 gm EXT TID #3 tube Instructions: Impetigo (ED) Forms: [employer] (Divehi) - Clinical Impression Clinical Impression: Cellulitis, Impetigo - Scribe Statement The provider has reviewed the documentation as recorded by the Scribe Sharif Tucker All medical record entries made by the Mickeyibe were at my direction and personally dictated by me. I have reviewed the chart and agree that the record accurately reflects my personal performance of the history, physical exam, medical decision making, and the department course for this patient. I have also personally directed, reviewed, and agree with the discharge instructions and disposition.
[2017-01-30 03:18] VITALS: BP 133/86; PULSE 114; RESP 20; TEMP 97.9
[2017-01-30] MEDS ORDERED: Bacitracin 500 Units/gm Oint Foilpak UD ONE (03:37)
[2017-01-30 04:31] VITALS: O2SAT 98
== END 2017-01-30 04:07 | disposition home or self-care (01) ==
LOC: C.ER 02:11
DX: L03.90 Cellulitis, unspecified (principal); L01.00 Impetigo, unspecified

== ENCOUNTER 2017-09-27 18:54 | Emergency (ER) | payer MEDICAID ==
[2017-09-27 19:03] VITALS: BP 107/65; PULSE 69; RESP 18; TEMP 98.5; O2SAT 98
[2017-09-27] MEDS ORDERED: Amoxicillin-Clav 875-125 mg Tab PO STA (19:40)
[2017-09-27] MEDS ORDERED: Amoxicillin-Clav 875-125 mg Tab PO ONE (19:49)
--- NOTE | 2017-09-27 20:10 | C.PDOC ---
History Of Present Illness 37 year old female presents to the ER stating she placed a tongue piercing on three days ago and as of one day ago patient began having pain and swelling to the distal tongue. denies fever, trauma, or bleeding. Time Seen by Provider: 09/27/17 19:07 Chief Complaint (Nursing): Abnormal Skin Integrity History Per: Patient History/Exam Limitations: no limitations Onset/Duration Of Symptoms: Days Current Symptoms Are (Timing): Still Present Location Of Injury: Anterior: Mouth (Distal tongue) Quality Of Symptoms: Painful, Swollen Recent travel outside of the [place]: No Past Medical History Reviewed: Historical Data, Nursing Documentation, Vital Signs Vital Signs: Last Vital Signs Temp 98.5 F 09/27/17 19:00 Pulse 69 09/27/17 19:00 Resp 18 09/27/17 19:00 BP 107/65 09/27/17 19:00 Pulse Ox 98 09/27/17 22:55 - Medical History PMH: Anxiety, Asthma, HTN, Kidney Stones, Pancreatitis, Chronic Kidney Disease, Seizures - [facility] Procedures INSERTION OF INFUSION DEV INTO R SUBCLAV VEIN, PERC APPROACH (06/23/15) ULTRASONOGRAPHY OF RIGHT SUBCLAVIAN VEIN, GUIDANCE (06/23/15) Family History: States: Unknown Family Hx - Social History Hx Tobacco Use: Yes Hx Alcohol Use: Yes Hx Substance Use: No (HEROIN) - Immunization History Hx Tetanus Toxoid Vaccination: No Hx Influenza Vaccination: Yes Hx Pneumococcal Vaccination: No Review Of Systems Constitutional: Negative for: Fever, Chills Eyes: Negative for: Pain ENT: Positive for: Mouth Pain (Distal tongue) Cardiovascular: Negative for: Edema Respiratory: Negative for: Cough Skin: Negative for: Rash Neurological: Negative for: Weakness, Numbness Physical Exam - Physical Exam Appears: Non-toxic Skin: Normal Color, Warm, Dry Head: Atraumatic, Normacephalic Eye(s): bilateral: Normal Inspection Nose: Normal Oral Mucosa: Moist Tongue: Other (White with a red base surrounding the piercing site with swelling and tenderness. At the distal tip of the tongue) Lips: Normal Appearing, No Swelling Gingiva: Normal Appearing Throat: Normal, No Erythema Neck: Normal ROM, Supple Lymphatic: Normal Exam, No Adenopathy Chest: Symmetrical, No Tenderness Cardiovascular: Rhythm Regular Respiratory: Normal Breath Sounds, No Accessory Muscle Use Extremity: Normal ROM Neurological/Psych: Oriented x3, Normal Speech Gait: Steady ED Course And Treatment O2 Sat by Pulse Oximetry: 98 (RA) Pulse Ox Interpretation: Normal Medical Decision Making Medical Decision Making: Patient highly advised to remove tongue piercing as there is a possibility of infection, however, patient refuses to remove piercing. Discussed the risks and benefits of removing piercing with the patient, but she still refuses to remove the piercing. Patient is aaox3, she understands the risks, will discharge home with Rx for antibiotics and advised to follow up with PMD or return if symptoms worsen. Disposition - Disposition Referrals: [facility] at [facility] [Outside] Disposition: HOME/ ROUTINE Disposition Time: 20:08 Condition: STABLE Additional Instructions: REMOVE THE PIERCING! Follow up with the medical doctor within 1-2 days without fail. Return if worsened. 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 - Scribe Statement The provider has reviewed the documentation as recorded by the Scribe Sharif Tucker All medical record entries made by the Mickeyibe were at my direction and personally dictated by me. I have reviewed the chart and agree that the record accurately reflects my personal performance of the history, physical exam, medical decision making, and the department course for this patient. I have also personally directed, reviewed, and agree with the discharge instructions and disposition.
[2017-09-27] MEDS ORDERED: Acetaminophen-Codeine 300/30 mg Tab PO STA (20:14)
== END 2017-09-27 20:17 | disposition home or self-care (01) ==
LOC: C.ER 18:54
DX: K14.0 Glossitis (principal)

== ENCOUNTER 2017-10-20 12:26 | Emergency (ER) | payer MEDICAID ==
[2017-10-20 12:36] VITALS: BMI 24.2
[2017-10-20 12:40] VITALS: RESP 20
[2017-10-20] MEDS ORDERED: Sodium Chloride 0.9% 1,000 ML IV ONE ×2 (13:29)
--- NOTE | 2017-10-20 13:33 | C.PDOC ---
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 Patient states she had similar episode 1 month ago and was taken to hospital, given IV Ketamine. Patient admits to no urine output since yesterday and currently denies diarrhea , weakness, headache or any other complaints at this time. Time Seen by Provider: 10/20/17 12:55 Chief Complaint (Nursing): Abdominal Pain History Per: Patient History/Exam Limitations: no limitations Onset/Duration Of Symptoms: Hrs Current Symptoms Are (Timing): Still Present Location Of Pain/Discomfort: Diffuse Radiation Of Pain To:: None Quality Of Discomfort: "Pain" Past Medical History Reviewed: Historical Data, Nursing Documentation, Vital Signs Vital Signs: Last Vital Signs Temp 98.0 F 10/20/17 15:40 Pulse 67 10/20/17 15:40 Resp 20 10/20/17 15:40 BP 105/67 10/20/17 15:40 Pulse Ox 97 10/20/17 17:18 - Medical History PMH: Anxiety, Asthma, HTN, Kidney Stones, Pancreatitis, Chronic Kidney Disease, Seizures Surgical History: No Surg Hx - [facility] Procedures INSERTION OF INFUSION DEV INTO R SUBCLAV VEIN, PERC APPROACH (06/23/15) ULTRASONOGRAPHY OF RIGHT SUBCLAVIAN VEIN, GUIDANCE (06/23/15) Family History: States: No Known Family Hx - Social History Hx Tobacco Use: Yes Hx Alcohol Use: Yes Hx Substance Use: No (HEROIN) - Immunization History Hx Tetanus Toxoid Vaccination: No Hx Influenza Vaccination: Yes Hx Pneumococcal Vaccination: No Review Of Systems Constitutional: Positive for: Fever, Chills Gastrointestinal: Positive for: Vomiting, Abdominal Pain. Negative for: Diarrhea Genitourinary: Negative for: Dysuria Musculoskeletal: Negative for: Back Pain Skin: Negative for: Rash Physical Exam - Physical Exam Appears: Non-toxic, No Acute Distress, Other (Diaphoretic) Skin: Warm, Dry, No Rash Head: Atraumatic, Normacephalic Eye(s): bilateral: Normal Inspection Oral Mucosa: Moist Neck: Normal ROM, Supple Cardiovascular: Rhythm Regular Respiratory: Normal Breath Sounds, No Rales, No Rhonchi, No Wheezing Gastrointestinal/Abdominal: Soft, Tenderness (Diffuse), No Guarding, No Rebound Back: No CVA Tenderness, No Paraspinal Tenderness Neurological/Psych: Oriented x3, Normal Speech, Normal Cognition ED Course And Treatment - Laboratory Results Result Diagrams: 10/20/17 13:54 10/20/17 13:54 Lab Interpretation: No Acute Changes Urine POC: Positive O2 Sat by Pulse Oximetry: 97 (RA) Pulse Ox Interpretation: Normal - Radiology CXR: Interpreted by Tn CXR Interpretation: Yes: No Acute Disease - Other Rad No standard instances X-Ray: Interpreted by Me Interpretation: Chest X-Ray: NAD - CT Scan/US No standard instances Other Rad Studies (CT/US): Read By Radiologist CT/US Interpretation: FINDINGS: LOWER THORAX: No infiltrate. Few nonspecific ill-defined regions of ground-glass opacity in both lower lobes representing change from prior examination. LIVER: Unremarkable. No gross lesion or ductal dilatation. GALLBLADDER AND BILE DUCTS: Gallbladder contracted. No calcified stones. PANCREAS: Unremarkable. No gross lesion or ductal dilatation. SPLEEN : Unremarkable. ADRENALS: Unremarkable. No mass. KIDNEYS AND URETERS: 2 mm nonobstructing calculus mid right kidney. No left renal calculus. No hydronephrosis. No renal mass. VASCULATURE: Unremarkable. No aortic aneurysm. BOWEL: Mild retained feces. No obstruction. No abnormal bowel loops. APPENDIX: Unremarkable. Normal appendix. PERITONEUM: Unremarkable. No free fluid. No free air. LYMPH NODES: Unremarkable. No enlarged lymph nodes. BLADDER: Decompressed around Morales catheter balloon. REPRODUCTIVE: Unremarkable uterus. BONES: No acute fracture. OTHER FINDINGS: None. IMPRESSION: Nonobstructing 2 mm mid right renal calculus. Morales catheter. Mild retained feces. Nonspecific ill-defined ground-glass opacities at both lung bases, possibly infectious/inflammatory. Please correlate clinically. Progress Note: CT scan, IV fluids ordered. Patient treated with tylenol 975 mg PO. Patient requesting Ketamine for pain. Morales catheter inserted > 10 ml urine returned. Patient requesting additional pain medication. Patient reports she is not allergic to toradol and request tordal. Treated with toradol and keflex Reassessment Condition: Improved Disposition Counseled Patient/Family Regarding: Studies Performed, Diagnosis, Need For Followup, Rx Given - Disposition Referrals: Giovanni Tong MD [Staff Provider] - Mike Lobato MD [Staff Provider] - Disposition: HOME/ ROUTINE Disposition Time: 18:00 Condition: IMPROVED Prescriptions: Cephalexin [cephalexin] 500 mg PO Q6 #28 cap Naproxen [Naprosyn] 1 tab PO BID PRN #25 tab PRN Reason: Pain Instructions: Acute Abdomen (Belly Pain), Child (DC), Dysuria, Adult (DC) Forms: [employer] (Nicaraguan) - POA Present On Arrival: None - Clinical Impression Clinical Impression: Abdominal pain, Constipation - 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 - Scribe Statement The provider has reviewed the documentation as recorded by the Mickeyibgregoria Aponte All medical record entries made by the Savita were at my direction and personally dictated by me. I have reviewed the chart and agree that the record accurately reflects my personal performance of the history, physical exam, medical decision making, and the department course for this patient. I have also personally directed, reviewed, and agree with the discharge instructions and disposition.
[2017-10-20] MEDS ORDERED: Sodium Chloride 0.9% 1,000 ML ONE (13:53)
[2017-10-20 14:01] LABS: BASO # 0.1 K/uL (0.0-0.2); BASO % 0.4 % (0.0-2.0); EOS % 0.1 % (0.0-4.0); LYMPH # 1.7 K/uL (1.0-4.3); LYMPH % 12.9 % (20.0-40.0); MEAN CELL VOLUME 90.7 fL (81.0-99.0); MEAN CORPUSCULAR HGB CONC 34.2 g/dL (33.0-37.0); MEAN PLATELET VOLUME 8.5 fL (7.2-11.7); MONO % 7.8 % (0.0-10.0); NEUT # 10.3 K/uL (1.8-7.0); NEUT % 78.8 % (50.0-75.0); RBC 4.4 Mil/uL (3.80-5.20); RED CELL DISTRIBUTION WIDTH 15.8 % (11.5-14.5)
[2017-10-20 14:03] LABS: HEMOGLOBIN 13.6 g/dL (11.0-16.0); WHITE BLOOD COUNT 13.1 K/uL (4.8-10.8)
[2017-10-20 14:40] LABS: ALB/GLOB RATIO 1.1 (1.0-2.1); ALBUMIN 3.7 g/dL (3.5-5.0); ALT/SGPT 21 U/L (9-52); AST/SGOT 18 U/L (14-36); BLOOD UREA NITROGEN 6 mg/dL (7-17); GFR AFRICAN-AMERICAN > 60; GFR NON-AFRICAN AMERICAN > 60; LIPASE 12 U/L (23-300)
[2017-10-20 14:59] LABS: HCG,QUALITATIVE URINE NEGATIVE (NEGATIVE)
[2017-10-20 15:10] LABS: SQUAMOUS EPITHIAL 1 /hpf (0-5); URINE AMORPHOUS SEDIMENT RARE /ul (<OCC); URINE BACTERIA FEW (<OCC); URINE BILIRUBIN NEGATIVE (NEGATIVE); URINE BLOOD 1+ (NEGATIVE); URINE CLARITY Hazy (Clear); URINE COLOR Yellow (YELLOW); URINE GLUCOSE (UA) NORMAL (Normal); URINE LEUKOCYTE ESTERASE 3+ Leu/uL (Negative); URINE PROTEIN 1+ mg/dL (NEGATIVE); URINE UROBILINOGEN NORMAL mg/dL (0.2-1.0)
[2017-10-20 15:41] VITALS: TEMP 98
--- NOTE | 2017-10-20 16:21 | CT ---
Date of service: 10/20/2017 PROCEDURE: CT Abdomen and Pelvis without intravenous contrast HISTORY: Pain COMPARISON: 11/12/2016 TECHNIQUE: Without contrast.. Contrast dose: 0 Radiation dose: Total exam DLP = 478.46 mGy-cm. This CT exam was performed using one or more of the following dose reduction techniques: Automated exposure control, adjustment of the mA and/or kV according to patient size, and/or use of iterative reconstruction technique. FINDINGS: LOWER THORAX: No infiltrate. Few nonspecific ill-defined regions of ground-glass opacity in both lower lobes representing change from prior examination. LIVER: Unremarkable. No gross lesion or ductal dilatation. GALLBLADDER AND BILE DUCTS: Gallbladder contracted. No calcified stones. PANCREAS: Unremarkable. No gross lesion or ductal dilatation. SPLEEN: Unremarkable. ADRENALS: Unremarkable. No mass. KIDNEYS AND URETERS: 2 mm nonobstructing calculus mid right kidney. No left renal calculus. No hydronephrosis. No renal mass. VASCULATURE: Unremarkable. No aortic aneurysm. BOWEL: Mild retained feces. No obstruction. No abnormal bowel loops. APPENDIX: Unremarkable. Normal appendix. PERITONEUM: Unremarkable. No free fluid. No free air. LYMPH NODES: Unremarkable. No enlarged lymph nodes. BLADDER: Decompressed around Morales catheter balloon. REPRODUCTIVE: Unremarkable uterus. BONES: No acute fracture. OTHER FINDINGS: None. IMPRESSION: Nonobstructing 2 mm mid right renal calculus. Morales catheter. Mild retained feces. Nonspecific ill-defined ground-glass opacities at both lung bases, possibly infectious/inflammatory. Please correlate clinically.
[2017-10-20 17:27] VITALS: BP 108/66; PULSE 71
--- NOTE | 2017-10-20 17:37 | RAD ---
Date of service: 10/20/2017 HISTORY: fever COMPARISON: Chest radiographs 06/24/2015. TECHNIQUE: Chest PA and lateral FINDINGS: LUNGS: No active pulmonary disease. PLEURA: No significant pleural effusion identified. No pneumothorax apparent. CARDIOVASCULAR: Normal. OSSEOUS STRUCTURES: No significant abnormalities. VISUALIZED UPPER ABDOMEN: Normal. OTHER FINDINGS: None. IMPRESSION: No interval acute cardiopulmonary disease appreciated.
[2017-10-20 18:39] VITALS: O2SAT 97
== END 2017-10-20 17:44 | disposition home or self-care (01) ==
LOC: C.ER 12:26
DX: K59.00 Constipation, unspecified (principal); R10.9 Unspecified abdominal pain; R33.9 Retention of urine, unspecified
CPT/HCPCS: 51702; 71046; 74176; 80053; 81001; 83605; 83690; 84703; 85025; 87040; 96360; 96372; 99285; J1885; J7030

== ENCOUNTER 2017-10-25 23:33 | Emergency (ER) | payer MEDICAID ==
[2017-10-25 23:33] VITALS: BMI 24.2
[2017-10-25 23:40] VITALS: RESP 20
[2017-10-25 23:59] LABS: SQUAMOUS EPITHIAL < 1 /hpf (0-5); URINE BACTERIA OCC (<OCC); URINE BILIRUBIN NEGATIVE (NEGATIVE); URINE CLARITY Clear (Clear); URINE COLOR Yellow (YELLOW); URINE GLUCOSE (UA) NORMAL (Normal); URINE LEUKOCYTE ESTERASE 2+ Leu/uL (Negative); URINE PROTEIN NEGATIVE (NEGATIVE)
[2017-10-26] LABS: HCG,QUALITATIVE URINE NEGATIVE (NEGATIVE); URINE BLOOD 1+ (NEGATIVE)
--- NOTE | 2017-10-26 00:38 | C.PDOC ---
History Of Present Illness 37 y/o female presents to the ED complaining of left flank pain, requesting ketamine for pain. States she has kidney stones. Patient was seen here 5 days ago, had CT scan showing 2 mm right non-obstructing calculus. Otherwise no fever , chills, nausea, vomiting. Ambulating without difficulty Time Seen by Provider: 10/26/17 00:04 Chief Complaint (Nursing): Back Pain History Per: Patient History/Exam Limitations: no limitations Onset/Duration Of Symptoms: Days Current Symptoms Are (Timing): Still Present Quality Of Discomfort: Dull Severity: Mild Pain Scale Rating Of: 2 Previous Symptoms: None Exacerbating Factor(s): Nothing Recent travel outside of the [place]: No Additional History Per: Patient Past Medical History Reviewed: Historical Data, Nursing Documentation, Vital Signs Vital Signs: Last Vital Signs Temp 98.1 F 10/26/17 01:06 Pulse 76 10/26/17 01:06 Resp 20 10/26/17 01:06 BP 100/61 10/26/17 01:06 Pulse Ox 95 10/26/17 01:12 - Medical History PMH: Anxiety, Asthma, HTN, Kidney Stones, Pancreatitis, Chronic Kidney Disease, Seizures Denies: HIV, Sexually Transmitted Disease - [facility] Procedures INSERTION OF INFUSION DEV INTO R SUBCLAV VEIN, PERC APPROACH (06/23/15) ULTRASONOGRAPHY OF RIGHT SUBCLAVIAN VEIN, GUIDANCE (06/23/15) Family History: States: Unknown Family Hx - Social History Hx Tobacco Use: Yes Hx Alcohol Use: Yes Hx Substance Use: No (HEROIN) - Immunization History Hx Tetanus Toxoid Vaccination: No Hx Influenza Vaccination: Yes Hx Pneumococcal Vaccination: No Review Of Systems Constitutional: Negative for: Fever, Chills Gastrointestinal: Positive for: Other (left flank pain). Negative for: Nausea, Vomiting Genitourinary: Negative for: Dysuria, Frequency, Pelvic Pain Musculoskeletal: Positive for: Back Pain (left flank) Psych: Negative for: Anxiety Physical Exam - Physical Exam Appears: Non-toxic, No Acute Distress Skin: Warm, Dry Oral Mucosa: Moist Chest: Symmetrical Gastrointestinal/Abdominal: Bowel Sounds (active), Soft, No Tenderness, No Distention, No Guarding Back: No CVA Tenderness Extremity: Normal ROM Neurological/Psych: Oriented x3 Gait: Steady ED Course And Treatment O2 Sat by Pulse Oximetry: 95 (RA) Pulse Ox Interpretation: Normal Progress Note: Urine sent. On further discussion, pt states she is not allergic to either Toradol or Tramadol. Patient will be discharged home w/ Toradol, Flomax, and Macrobid. Disposition Counseled Patient/Family Regarding: Studies Performed, Diagnosis, Need For Followup, Rx Given - Disposition Referrals: Giovanni Tong MD [Staff Provider] - Disposition: HOME/ ROUTINE Disposition Time: 00:38 Condition: FAIR Prescriptions: Ketorolac Tromethamine [Toradol] 10 mg PO QID PRN #20 tab PRN Reason: Pain, Severe (8-10) Nitrofurantoin Macrocrystals [Macrobid] 1 cap PO BID #14 cap Tamsulosin [Flomax] 0.4 mg PO DAILY #12 cap Instructions: Urinary Tract Infection, Adult (DC), Renal Colic (DC) Forms: [employer] (Namibian) - POA Present On Arrival: None - Clinical Impression Clinical Impression: UTI (urinary tract infection), Renal colic - Scribe Statement The provider has reviewed the documentation as recorded by the Scribe (Melia Johnson) Provider Attestation: All medical record entries made by the Scribe were at my direction and personally dictated by me. I have reviewed the chart and agree that the record accurately reflects my personal performance of the history, physical exam, medical decision making, and the department course for this patient. I have also personally directed, reviewed, and agree with the discharge instructions and disposition.
[2017-10-26 01:07] VITALS: BP 100/61; PULSE 76; TEMP 98.1
[2017-10-26 01:08] VITALS: O2SAT 95
== END 2017-10-26 01:07 | disposition home or self-care (01) ==
LOC: C.ER 23:33
DX: N39.0 Urinary tract infection, site not specified (principal); N23 Unspecified renal colic

== ENCOUNTER 2018-01-11 15:40 | Emergency (ER) | payer MEDICAID ==
[2018-01-11 15:40] VITALS: BMI 24.2
[2018-01-11 15:58] VITALS: BP 106/62; PULSE 72; RESP 18; TEMP 98.6; O2SAT 96
[2018-01-11 16:17] LABS: BASO % 0.3 % (0.0-2.0); EOS # 0.1 K/uL (0.0-0.7); EOS % 1.1 % (0.0-4.0); LYMPH # 2.3 K/uL (1.0-4.3); LYMPH % 45.1 % (20.0-40.0); MEAN CORPUSCULAR HEMOGLOBIN 32.5 pg (27.0-31.0); MEAN CORPUSCULAR HGB CONC 34.6 g/dL (33.0-37.0); MEAN PLATELET VOLUME 7.7 fL (7.2-11.7); MONO # 0.4 K/uL (0.0-0.8); MONO % 6.9 % (0.0-10.0); NEUT # 2.4 K/uL (1.8-7.0); NEUT % 46.6 % (50.0-75.0); NRBC % 0.1 % (0.0-2.0); RBC 4.61 Mil/uL (3.80-5.20); RED CELL DISTRIBUTION WIDTH 15.8 % (11.5-14.5)
[2018-01-11 16:18] LABS: MEAN CELL VOLUME 94.1 fL (81.0-99.0); WHITE BLOOD COUNT 5.2 K/uL (4.8-10.8)
[2018-01-11 16:29] LABS: HCG,QUALITATIVE URINE NEGATIVE (NEGATIVE)
[2018-01-11 16:51] LABS: SQUAMOUS EPITHIAL 1 /hpf (0-5); URINE BACTERIA RARE (<OCC); URINE BILIRUBIN NEGATIVE (NEGATIVE); URINE BLOOD NEGATIVE (NEGATIVE); URINE CLARITY Clear (Clear); URINE COLOR Yellow (YELLOW); URINE GLUCOSE (UA) NORMAL (Normal); URINE LEUKOCYTE ESTERASE NEG Leu/uL (Negative); URINE PROTEIN NEGATIVE (NEGATIVE); URINE UROBILINOGEN NORMAL mg/dL (0.2-1.0)
[2018-01-11] MEDS ORDERED: Morphine 4 MG/ML VIAL IV ONE (16:57)
[2018-01-11] MEDS ORDERED: Sodium Chloride 0.9% 1,000 ML IV ONE (16:57)
[2018-01-11 17:15] LABS: BARBITURATES, UR NEGATIVE (NEGATIVE); BENZODIAZEPINES, UR NEGATIVE (NEGATIVE); PHENCYCLIDINE, UR NEGATIVE (NEGATIVE)
[2018-01-11 17:19] LABS: OPIATES, UR POSITIVE (NEGATIVE)
[2018-01-11 17:28] LABS: ALB/GLOB RATIO 1.2 (1.0-2.1); ALBUMIN 4.6 g/dL (3.5-5.0); ALT/SGPT 61 U/L (9-52); AST/SGOT 155 U/L (14-36); BLOOD UREA NITROGEN 12 mg/dL (7-17); CALCIUM 9.7 mg/dl (8.6-10.4); GFR NON-AFRICAN AMERICAN > 60
[2018-01-11 17:49] LABS: LIPASE 116 U/L (23-300)
[2018-01-11] MEDS ORDERED: Sodium Chloride 0.9% 1,000 ML ONE (18:03)
[2018-01-11] MEDS ORDERED: Morphine 4 MG/ML VIAL ONE (18:03)
--- NOTE | 2018-01-11 18:21 | US ---
Date of service: 01/11/2018 HISTORY: RUQ pain COMPARISON: CT abdomen pelvis without contrast performed 10/20/17, abdominal ultrasound performed 06/27/15 TECHNIQUE: Sonographic evaluation of the right upper quadrant of the abdomen. FINDINGS: LIVER: Measures 15.7 cm in length. Echogenic liver may be seen in setting of hepatic parenchymal disease or fatty infiltration. No focal hepatic mass identified. No intrahepatic bile duct dilatation. GALLBLADDER: No gallstones. No gallbladder wall thickening or pericholecystic edema. Negative sonographic Carpenter's sign as assessed by the steward/stewardess wine. COMMON BILE DUCT: Measures 9 mm. PANCREAS: Not well-visualized. RIGHT KIDNEY: Measures 11.0 x 5.6 x 5.2 cm. No obstructing calculus or hydronephrosis. AORTA: Limited visualization appears grossly unremarkable. IVC: Limited visualization appears grossly unremarkable. OTHER FINDINGS: None . IMPRESSION: Echogenic liver may be seen in setting of hepatic parenchymal disease or fatty infiltration.
--- NOTE | 2018-01-11 18:48 | C.PDOC ---
History Of Present Illness 37-year-old female, presents to the emergency department with complaints of right-upper quadrant abdominal pain ongoing for the past several days. Patient was seen in [place] two days ago, and was given Morphine for her pain. María ent notes she has a Hx of alcohol induced pancreatitis several years ago. States she drank "a shot" today. She denies nausea/vomiting, diarrhea, fever, chills, or any other associated symptoms. No other complaints at this time. Time Seen by Provider: 01/11/18 16:35 Chief Complaint (Nursing): Abdominal Pain History Per: Patient History/Exam Limitations: no limitations Current Symptoms Are (Timing): Still Present Past Medical History Reviewed: Historical Data, Nursing Documentation, Vital Signs Vital Signs: Last Vital Signs Temp 98.6 F 01/11/18 15:55 Pulse 72 01/11/18 15:55 Resp 18 01/11/18 15:55 BP 106/62 01/11/18 15:55 Pulse Ox 96 01/11/18 15:55 - Medical History PMH: Anxiety, Asthma, HTN, Kidney Stones, Pancreatitis, Chronic Kidney Disease, Seizures Denies: HIV, Sexually Transmitted Disease - [facility] Procedures INSERTION OF INFUSION DEV INTO R SUBCLAV VEIN, PERC APPROACH (06/23/15) ULTRASONOGRAPHY OF RIGHT SUBCLAVIAN VEIN, GUIDANCE (06/23/15) Family History: States: No Known Family Hx - Social History Hx Tobacco Use: Yes Hx Alcohol Use: Yes Hx Substance Use: No (HEROIN) - Immunization History Hx Tetanus Toxoid Vaccination: No Hx Influenza Vaccination: Yes Hx Pneumococcal Vaccination: No Review Of Systems Constitutional: Negative for: Fever Cardiovascular: Negative for: Chest Pain Respiratory: Negative for: Shortness of Breath Gastrointestinal: Negative for: Vomiting Musculoskeletal: Negative for: Back Pain Neurological: Negative for: Weakness, Numbness Physical Exam - Physical Exam Appears: Non-toxic, No Acute Distress, Other (Screaming, yelling, writhing in bed. Uncooperative) Skin: Warm, Dry, No Rash Head: Atraumatic Eye(s): bilateral: Normal Inspection Nose: Normal Oral Mucosa: Moist Lips: Normal Appearing Neck: Normal ROM Cardiovascular: Rhythm Regular, No Murmur Respiratory: Normal Breath Sounds, No Accessory Muscle Use Gastrointestinal/Abdominal: Soft, No Tenderness Back: Normal Inspection Extremity: Normal ROM, No Deformity Neurological/Psych: Oriented x3, Normal Speech ED Course And Treatment - Laboratory Results Result Diagrams: 01/11/18 16:12 01/11/18 17:10 O2 Sat by Pulse Oximetry: 96 Pulse Ox Interpretation: Normal (RA) - CT Scan/US RUQ Other Rad Studies (CT/US): Read By Radiologist CT/US Interpretation: Accession No. : [id number]. Patient Name / ID : HOMERO SHUKLA / [id number]. Exam Date : 01/11/2018 17:34:38 ( Approved ). Study Comment : Sex / Age : F / 37Y. Creator : Sivan Massey MD. Dictator : Sivan Massey MD. Live Games Dealer : Television Program Director : Sivan Massey MD. Approver2 : Report Date : 01/11/2018 18:18:28. My Comment : . Date of service: 01/11/2018. HISTORY: RUQ pain. COMPARISON: CT abdomen pelvis without contrast performed 10/20/17, abdominal ultrasound performed 06/27/15. TECHNIQUE: Sonographic evaluation of the right upper quadrant of the abdomen. FINDINGS: LIVER: Measures 15.7 cm in length. Echogenic liver may be seen in setting of hepatic parenchymal disease or fatty infiltration. No focal hepatic mass identified. No intrahepatic bile duct dilatation. GALLBLADDER: No gallstones. No gallbladder wall thickening or pericholecystic edema. Negative sonographic Carpenter's sign as assessed by the commutator inspector. COMMON BILE DUCT: Measures 9 mm. PANCREAS: Not well-visualized. RIGHT KIDNEY: Measures 11.0 x 5.6 x 5.2 cm. No obstructing calculus or hydronephrosis. AORTA: Limited visualization appears grossly unremarkable. IVC: Limited visualization appears grossly unremarkable. OTHER FINDINGS: None . IMPRESSION: Echogenic liver may be seen in setting of hepatic parenchymal disease or fatty infiltration. Medical Decision Making Medical Decision Making: Patient given 1L NS bolus and 4mg morphine IVP for pain. Patient uncooperative, yelling at staff. EtOH level noted. Patient eloped with family. Disposition - Disposition Disposition: ELOPEMENT - ER ONLY Disposition Time: 18:50 Condition: FAIR Forms: [facility] (Lao) - Clinical Impression Clinical Impression: Abdominal pain - Scribe Statement The provider has reviewed the documentation as recorded by the Scribe (Alessio Farris) Provider Attestation: All medical record entries made by the Scribe were at my direction and personally dictated by me. I have reviewed the chart and agree that the record accurately reflects my personal performance of the history, physical exam, medical decision making, and the department course for this patient. I have also personally directed, reviewed, and agree with the discharge instructions and disposition.
== END 2018-01-11 16:40 | disposition left against medical advice (07) ==
LOC: C.ER 15:40
DX: R10.11 Right upper quadrant pain (principal)

== ENCOUNTER 2018-01-15 14:58 | Inpatient (IN) | payer MEDICAID ==
[2018-01-15 15:17] VITALS: BMI 25.8
[2018-01-15] MEDS ORDERED: Sodium Chloride 0.9% 1,000 ML IV ONE (17:16)
--- NOTE | 2018-01-15 17:16 | C.PDOC ---
History Of Present Illness 37 year old female presents to ED complaining of abdominal pain since 01/11/18. Patient has history of pacreatitis and was discharge from [facility] on 01/14/18 for recurrence of symptoms. Denies any recent alcohol use, fever, chills, couhg, shortness of breath, weakness, numbness, but admits to nausea and vomiting. PERSIST ABD PAIN SINCE 01/11. PS HO PANCREATITIS, DC FROM [facility] 01/14 FOR RECURRENCE. DENIES RECENT ETOH USE. LOCALIZED +NV. EXAM MILD DIST NONTOXIC HEENT ANICTERIC MMM ABD +EPIG TEND SOFT NO R.G PSYCH CALM COOPERATIVE NO ACUTE INTOX REMAINDER NEG MDM REQUESTING MORPHINE FREQUENTLY Time Seen by Provider: 01/15/18 16:55 Chief Complaint (Nursing): Abdominal Pain History Per: Patient History/Exam Limitations: no limitations Onset/Duration Of Symptoms: Days Current Symptoms Are (Timing): Still Present Past Medical History Reviewed: Historical Data, Nursing Documentation, Vital Signs Vital Signs: Last Vital Signs Temp 98.3 F 01/15/18 15:17 Pulse 72 01/15/18 15:17 Resp 18 01/15/18 15:17 BP 113/74 01/15/18 15:17 Pulse Ox 96 01/15/18 15:17 - Medical History PMH: Anxiety, Asthma, HTN, Kidney Stones, Pancreatitis, Chronic Kidney Disease, Seizures Denies: HIV, Sexually Transmitted Disease Surgical History: No Surg Hx - [facility] Procedures INSERTION OF INFUSION DEV INTO R SUBCLAV VEIN, PERC APPROACH (06/23/15) ULTRASONOGRAPHY OF RIGHT SUBCLAVIAN VEIN, GUIDANCE (06/23/15) Family History: States: No Known Family Hx - Social History Hx Tobacco Use: Yes Hx Alcohol Use: Yes Hx Substance Use: Yes (HEROIN) - Immunization History Hx Tetanus Toxoid Vaccination: No Hx Influenza Vaccination: Yes Hx Pneumococcal Vaccination: No Review Of Systems Except As Marked, All Systems Reviewed And Found Negative. Constitutional: Negative for: Fever, Chills Cardiovascular: Negative for: Chest Pain Respiratory: Negative for: Cough, Shortness of Breath Gastrointestinal: Positive for: Nausea, Vomiting, Abdominal Pain Neurological: Negative for: Weakness, Numbness Physical Exam - Physical Exam Appears: Non-toxic, Other (Mild discomfort) Skin: Warm, Dry Head: Atraumatic, Normacephalic Eye(s): bilateral: PERRL, EOMI Oral Mucosa: Moist (Anicteric moist mucous membranes) Neck: Supple Chest: Symmetrical, No Deformity Cardiovascular: Rhythm Regular Respiratory: Normal Breath Sounds, No Rales, No Rhonchi, No Wheezing, Other (NARD) Gastrointestinal/Abdominal: Soft, Tenderness (Epigastric tenderness), No Guarding, No Rebound Neurological/Psych: Oriented x3, Normal Motor, Normal Sensation, Other (Calm, cooperative, no acute intoxication) ED Course And Treatment - Laboratory Results Result Diagrams: 01/15/18 17:34 01/15/18 17:34 O2 Sat by Pulse Oximetry: 96 (RA) Pulse Ox Interpretation: Normal Progress - Re-Evaluation Re-evaluation Note: 01/15/18 18:27 PERSIST ABD PAIN. VSS. PENDING [employer] MANAGER CALLBACK 01/15/18 18:56 d/w DR Ross FU [employer] MANAGER WILL ADMIT - Data Reviewed Data Reviewed: Lab, Diagnostic imaging, Old records Medical Decision Making Medical Decision Making: Plan: * Labs * Morphine * IV fluids * Zofran * Urinalysis Requesting morphine frequently Disposition Counseled Patient/Family Regarding: Diagnosis - Disposition Disposition: HOSPITALIZED Disposition Time: 18:56 Condition: SERIOUS Forms: [facility] (Urdu) - Clinical Impression Clinical Impression: Abdominal pain, Vomiting, Nausea - Scribe Statement The provider has reviewed the documentation as recorded by the Savita Arango Yeison Provider Attestation: All medical record entries made by the Savtia were at my direction and personally dictated by me. I have reviewed the chart and agree that the record accurately reflects my personal performance of the history, physical exam, medical decision making, and the department course for this patient. I have also personally directed, reviewed, and agree with the discharge instructions and disposition.
[2018-01-15] MEDS ORDERED: Morphine 4 MG/ML VIAL ONE (17:27)
[2018-01-15] MEDS ORDERED: Sodium Chloride 0.9% 1,000 ML ONE (17:27)
[2018-01-15 17:37] LABS: BASO % 0.1 % (0.0-2.0); EOS # 0.1 K/uL (0.0-0.7); EOS % 1.8 % (0.0-4.0); HEMOGLOBIN 15.1 g/dL (11.0-16.0); LYMPH # 1.7 K/uL (1.0-4.3); LYMPH % 40.8 % (20.0-40.0); MEAN CELL VOLUME 94.3 fL (81.0-99.0); MEAN PLATELET VOLUME 8.1 fL (7.2-11.7); MONO # 0.4 K/uL (0.0-0.8); NEUT % 47.3 % (50.0-75.0); NRBC % 0.1 % (0.0-2.0); RBC 4.72 Mil/uL (3.80-5.20); RED CELL DISTRIBUTION WIDTH 15.2 % (11.5-14.5); WHITE BLOOD COUNT 4.2 K/uL (4.8-10.8)
[2018-01-15 17:48] LABS: HCG,QUALITATIVE URINE NEGATIVE (NEGATIVE)
[2018-01-15 17:53] LABS: SQUAMOUS EPITHIAL 2 /hpf (0-5); URINE BACTERIA MOD (<OCC); URINE BILIRUBIN NEGATIVE (NEGATIVE); URINE BLOOD NEGATIVE (NEGATIVE); URINE CLARITY Hazy (Clear); URINE COLOR Yellow (YELLOW); URINE GLUCOSE (UA) NORMAL (Normal); URINE LEUKOCYTE ESTERASE TRACE Leu/uL (Negative); URINE PROTEIN NEGATIVE (NEGATIVE); URINE UROBILINOGEN NORMAL mg/dL (0.2-1.0)
[2018-01-15 17:58] LABS: ALB/GLOB RATIO 1.1 (1.0-2.1); ALBUMIN 3.9 g/dL (3.5-5.0); ALT/SGPT 46 U/L (9-52); AST/SGOT 78 U/L (14-36); BLOOD UREA NITROGEN 7 mg/dL (7-17); GFR NON-AFRICAN AMERICAN > 60; LIPASE 281 U/L (23-300)
[2018-01-15 18:18] VITALS: RESP 20
[2018-01-15] MEDS ORDERED: HYDROmorphone 0.5 mg/0.5 ml ISec IVP STA (18:26)
[2018-01-15] MEDS ORDERED: HYDROmorphone 0.5 mg/0.5 ml ISec IVP PRN (19:20)
--- NOTE | 2018-01-15 19:25 | CP.PCM.HP ---
History of Present Illness - History of Present Illness History of Present Illness: 37-year-old female patient with PMH of HTN, kidney stones, CKD, pancreatitis, seizures comes to the ED with complains of abdominal pain since 01/11/18. Patient patient was recently discharged from [facility] on 01/14/18 for recurrence of symptoms of pancreatitis. Patient denies any recent alcohol use, fever, chills, cough, weakness, numbness, shortness of breath. But patient does complain of nausea and vomiting. Present on Admission - Present on Admission Any Indicators Present on Admission: No Past Patient History - Infectious Disease Hx of Infectious Diseases: None - Past Medical History & Family History Past Medical History?: Yes - Past Social History Smoking Status: Heavy Smoker > 10 Cigarettes Daily - CARDIAC Hx Hypertension: Yes - PULMONARY Hx Asthma: Yes - NEUROLOGICAL Hx Seizures: Yes - HEENT Hx HEENT Problems: No - RENAL Hx Chronic Kidney Disease: Yes Hx Kidney Stones: Yes - ENDOCRINE/METABOLIC Hx Endocrine Disorders: No - HEMATOLOGICAL/ONCOLOGICAL Hx Human Immunodeficiency Virus (HIV): No - INTEGUMENTARY Hx Dermatological Problems: No - MUSCULOSKELETAL/RHEUMATOLOGICAL Other/Comment: right hip sx (adelfo and plates) - GASTROINTESTINAL Hx Pancreatitis: Yes - GENITOURINARY/GYNECOLOGICAL Hx Sexually Transmitted Disorders: No - PSYCHIATRIC Hx Anxiety: Yes Hx Substance Use: Yes (HEROIN) - SURGICAL HISTORY Hx Surgeries: Yes Hx Section: Yes (x1) Hx Orthopedic Surgery: Yes (hip surgery) - ANESTHESIA Hx Anesthesia: Yes Hx Anesthesia Reactions: No Hx Malignant Hyperthermia: No Meds Allergies/Adverse Reactions: Allergies Allergy/AdvReac Type Severity Reaction Status Date / Time Fish Containing Products Allergy Intermediate Verified 01/15/18 15:17 tramadol Allergy Verified 01/15/18 15:17 Physical Exam - Constitutional Appears: Well, Non-toxic - Head Exam Head Exam: ATRAUMATIC, NORMAL INSPECTION - Eye Exam Eye Exam: EOMI, Normal appearance - ENT Exam ENT Exam: Mucous Membranes Moist, Normal Exam - Neck Exam Neck exam: Positive for: Normal Inspection - Respiratory Exam Respiratory Exam: Decreased Breath Sounds - Cardiovascular Exam Cardiovascular Exam: REGULAR RHYTHM, +S1, +S2 - GI/Abdominal Exam GI & Abdominal Exam: Tenderness (epigastric) - Rectal Exam Rectal Exam: Deferred Results - Vital Signs Recent Vital Signs: Last Vital Signs Temp 97.6 F 10/13/18 18:17 Pulse 68 01/15/18 18:17 Resp 20 01/15/18 18:17 BP 125/70 01/15/18 18:17 Pulse Ox 96 01/15/18 18:57 - Labs Result Diagrams: 01/18/18 11:20 01/18/18 11:20 Labs: Laboratory Results - last 24 hr 01/15/18 01/15/18 01/15/18 17:34 17:34 17:46 WBC 4.2 L RBC 4.72 Hgb 15.1 Hct 44.5 MCV 94.3 MCH 32.0 H MCHC 34.0 RDW 15.2 H Plt Count 147 MPV 8.1 Neut % (Auto) 47.3 L Lymph % (Auto) 40.8 H [place] % (Auto) 10.0 Eos % (Auto) 1.8 Baso % (Auto) 0.1 Neut # (Auto) 2.0 Lymph # (Auto) 1.7 [place] # (Auto) 0.4 Eos # (Auto) 0.1 Baso # (Auto) 0.0 Sodium 144 Potassium 4.5 Chloride 105 Carbon Dioxide 25 Anion Gap 18 BUN 7 Creatinine 0.5 L Est GFR ( Amer) > 60 Est GFR (Non-Af Amer) > 60 Random Glucose 82 Calcium 9.0 Total Bilirubin 0.5 AST 78 H D ALT 46 Alkaline Phosphatase 106 Total Protein 7.3 Albumin 3.9 Globulin 3.4 Albumin/Globulin Ratio 1.1 Lipase 281 Urine Color Yellow Urine Clarity Hazy Urine pH 7.0 Ur Specific Jbphh 1.009 Urine Protein Negative Urine Glucose (UA) Normal Urine Ketones Negative Urine Blood Negative Urine Nitrate Negative Urine Bilirubin Negative Urine Urobilinogen Normal Ur Leukocyte Esterase Trace Urine WBC (Auto) 1 Urine RBC (Auto) < 1 Ur Squamous Epith Cells 2 Urine Bacteria Mod H Urine HCG, Qual Negative Assessment & Plan (1) Abdominal pain Status: Acute (2) Abdominal pain Status: Acute (3) Acute alcoholic pancreatitis Status: Acute (4) Asthma Status: Acute (5) Cellulitis Status: Acute (6) Cellulitis Status: Acute (7) Constipation Status: Acute (8) Contusion, hip Status: Acute (9) Drug abuse and dependence Status: Acute (10) Epigastric pain Status: Acute (11) Morales catheter in place Status: Acute (12) Hypertension Status: Acute (13) Impetigo Status: Acute (14) Nausea Status: Acute (15) Prophylactic measure Status: Acute (16) Pyelonephritis Status: Acute Priority: High (17) Renal colic Status: Acute (18) Right sided abdominal pain Status: Acute (19) Seizure Status: Acute (20) UTI (urinary tract infection) Status: Acute (21) Urinary retention Status: Acute (22) Vomiting Status: Acute (23) Vomiting Status: Acute (24) Alcohol abuse Status: Chronic (25) Anxiety Status: Chronic Priority: Medium (26) Hepatitis C infection Status: Chronic (27) Alcohol intoxication Status: Resolved Priority: High - Assessment and Plan (Free Text) Plan: Patient seen and examined at bedside Labs and meds reviewed Vital signs stable IV fluids Zofran Pain meds GI consult Check amylase Close monitoring follow-up with labs
--- NOTE | 2018-01-15 22:34 | CP.PCM.PCO ---
Physician Communication Note - Physician Communication Note Physician Communication Note: Consult request is forwarded to Dr. Dobson who's alumni relations manager
--- NOTE | 2018-01-15 22:36 | CP.PCM.PCO ---
Physician Communication Note - Physician Communication Note Physician Communication Note: Pt was d/c'ed yesterday. He won't need "methadone adjustment"
--- NOTE | 2018-01-15 22:38 | CP.PCM.PCO ---
Physician Communication Note - Physician Communication Note Physician Communication Note: Please confirm his dose from his program and order. No consult needed
[2018-01-15] MEDS: HYDROmorphone 1 mg/ml ISec IVP PRN (23:00)
[2018-01-16] MEDS: HYDROmorphone 1 mg/ml ISec IVP PRN ×5 (03:01→22:36)
[2018-01-16] MEDS: Pantoprazole 40 mg EC Tab PO SCH (10:14)
[2018-01-16] MEDS: Enoxaparin 40 mg Syringe SC SCH (10:14)
[2018-01-16 12:21] LABS: AMYLASE 69 U/L (30-110); LIPASE 195 U/L (23-300)
--- NOTE | 2018-01-16 16:04 | CP.PCM.PN ---
Subjective - Date & Time of Evaluation Date of Evaluation: 01/16/18 Time of Evaluation: 09:00 - Subjective Subjective: clinically same Objective - Vital Signs/Intake and Output Vital Signs (last 24 hours): Temp Pulse Resp BP Pulse Ox 98.1 F 58 L 20 129/80 95 01/16/18 07:56 01/16/18 07:56 01/16/18 07:56 01/16/18 07:56 01/16/18 15:42 Intake and Output: 01/16/18 01/16/18 06:59 18:59 Intake Total 0 Output Total 2 Balance -2 0 - Medications Medications: Current Medications Enoxaparin Sodium (Lovenox) 40 mg SC DAILY [facility] Last Admin: 01/16/18 10:14 Dose: 40 mg Hydromorphone HCl (Dilaudid) 1 mg IVP Q4H PRN PRN Reason: Pain, severe (8-10) Last Admin: 01/16/18 14:36 Dose: 1 mg Pantoprazole Sodium (Protonix Ec Tab) 40 mg PO DAILY [facility] Last Admin: 01/16/18 10:14 Dose: 40 mg Pneumococcal Polyvalent Vaccine (Pneumovax 23 Vaccine) 0.5 ml IM .ONCE ONE Stop: 01/19/18 10:01 - Labs Labs: 01/15/18 17:34 01/15/18 17:34 PT 11.0 SECONDS (9.7-12.2) 01/16/18 11:44 INR 1.0 01/16/18 11:44 APTT 36 SECONDS (21-34) H 01/16/18 11:44 - Constitutional Appears: Well - Head Exam Head Exam: ATRAUMATIC, NORMAL INSPECTION, NORMOCEPHALIC - Eye Exam Eye Exam: EOMI, Normal appearance, PERRL Pupil Exam: NORMAL ACCOMODATION, PERRL - ENT Exam ENT Exam: Mucous Membranes Moist, Normal Exam - Neck Exam Neck Exam: Full ROM, Normal Inspection. absent: Lymphadenopathy - Respiratory Exam Respiratory Exam: Decreased Breath Sounds - Cardiovascular Exam Cardiovascular Exam: REGULAR RHYTHM, +S1, +S2 - GI/Abdominal Exam GI & Abdominal Exam: Soft, Diminished Bowel Sounds - Rectal Exam Rectal Exam: Deferred Assessment and Plan (1) Abdominal pain Status: Acute (2) Abdominal pain Status: Acute (3) Acute alcoholic pancreatitis Status: Acute (4) Asthma Status: Acute (5) Cellulitis Status: Acute (6) Cellulitis Status: Acute (7) Constipation Status: Acute (8) Contusion, hip Status: Acute (9) Drug abuse and dependence Status: Acute (10) Epigastric pain Status: Acute (11) Morales catheter in place Status: Acute (12) Hypertension Status: Acute (13) Impetigo Status: Acute (14) Nausea Status: Acute (15) Prophylactic measure Status: Acute (16) Pyelonephritis Status: Acute (17) Renal colic Status: Acute (18) Right sided abdominal pain Status: Acute (19) Seizure Status: Acute (20) UTI (urinary tract infection) Status: Acute (21) Urinary retention Status: Acute (22) Vomiting Status: Acute (23) Vomiting Status: Acute (24) Alcohol abuse Status: Chronic (25) Anxiety Status: Chronic (26) Hepatitis C infection Status: Chronic (27) Alcohol intoxication Status: Resolved - Assessment and Plan (Free Text) Plan: Patient seen and examined bedside Hemodynamically stable Discussed with staff Overnight events noted Pain meds DVT/GI prophylaxis Urine culture negative to date Close monitoring Counseling
[2018-01-17] MEDS: HYDROmorphone 1 mg/ml ISec IVP PRN ×2 (04:52→09:00)
[2018-01-17] MEDS: Pantoprazole 40 mg EC Tab PO SCH (09:00)
[2018-01-17] MEDS: Enoxaparin 40 mg Syringe SC SCH (09:00)
[2018-01-17] MEDS ORDERED: Iohexol 240 (50 ml) PO ONE (12:30)
[2018-01-17] MEDS: Methadone 40 mg Tab PO SCH (12:45)
[2018-01-17] MEDS ORDERED: Iodixanol 320 MG/ML 100 ML BOTTLE IV ONE (13:38)
[2018-01-17] MEDS: HYDROmorphone 0.5 mg/0.5 ml ISec IVP PRN ×2 (14:22→20:22)
--- NOTE | 2018-01-17 15:30 | CT ---
Date of service: 01/17/2018 PROCEDURE: CT Abdomen and Pelvis with contrast HISTORY: abd pain COMPARISON: Gallbladder ultrasound performed 01/11/18, CT abdomen and pelvis without contrast performed 10/20/17 TECHNIQUE: Contrast dose: 100 mL Visipaque IV Radiation dose: Total exam DLP = 708.21 mGy-cm. This CT exam was performed using one or more of the following dose reduction techniques: Automated exposure control, adjustment of the mA and/or kV according to patient size, and/or use of iterative reconstruction technique. FINDINGS: LOWER THORAX: No visible consolidation, pleural effusion, or pneumothorax. LIVER: Hepatomegaly. GALLBLADDER AND BILE DUCTS: Unremarkable. PANCREAS: Unremarkable. SPLEEN: 7 mm probable splenule. Otherwise unremarkable. ADRENALS: Unremarkable. KIDNEYS AND URETERS: The kidneys enhance symmetrically. No hydronephrosis or obstructing calculus identified. Punctate nonobstructing right renal calculus. VASCULATURE: No aortic aneurysm. BOWEL: Stomach is nondistended. Lack of oral contrast limits evaluation for bowel pathology. Bowel loops appear within normal limits of caliber without evidence of obstruction. Moderate diffuse constipation. APPENDIX: The appendix appears within normal limits of caliber. No secondary signs of acute appendicitis. PERITONEUM: No significant free fluid. No definite free air. LYMPH NODES: No bulky adenopathy identified. BLADDER: Decompressed urinary bladder limits evaluation. REPRODUCTIVE: The uterus is present. BONES: Mild degenerative changes of the spine. Postsurgical changes of the right hip. OTHER FINDINGS: None. IMPRESSION: Moderate diffuse constipation. Hepatomegaly. Punctate nonobstructing right renal calculus. Additional findings as above.
--- NOTE | 2018-01-17 16:43 | CP.PCM.PN ---
Subjective - Date & Time of Evaluation Date of Evaluation: 01/17/18 Time of Evaluation: 10:15 - Subjective Subjective: clinically same Objective - Vital Signs/Intake and Output Vital Signs (last 24 hours): Temp Pulse Resp BP Pulse Ox 97.7 F 61 20 142/90 99 01/17/18 07:29 01/17/18 07:29 01/17/18 07:29 01/17/18 07:29 01/17/18 07:29 Intake and Output: 01/17/18 01/17/18 06:59 18:59 Intake Total 0 60 Balance 0 60 - Medications Medications: Current Medications Enoxaparin Sodium (Lovenox) 40 mg SC DAILY [facility] Last Admin: 01/17/18 09:00 Dose: Not Given Hydromorphone HCl (Dilaudid) 0.5 mg IVP Q6H PRN PRN Reason: Pain, severe (8-10) Last Admin: 01/17/18 14:22 Dose: 0.5 mg Methadone HCl (Methadose) 80 mg PO DAILY [facility] Last Admin: 01/17/18 12:45 Dose: 80 mg Metoclopramide HCl (Reglan) 10 mg IVP ACHS [facility] Last Admin: 01/17/18 16:38 Dose: 10 mg Pantoprazole Sodium (Protonix Inj) 40 mg IVP DAILY [facility] Pneumococcal Polyvalent Vaccine (Pneumovax 23 Vaccine) 0.5 ml IM .ONCE ONE Stop: 01/19/18 10:01 - Labs Labs: 01/15/18 17:34 01/15/18 17:34 PT 11.0 SECONDS (9.7-12.2) 01/16/18 11:44 INR 1.0 01/16/18 11:44 APTT 36 SECONDS (21-34) H 01/16/18 11:44 - Constitutional Appears: Well - Head Exam Head Exam: ATRAUMATIC, NORMAL INSPECTION, NORMOCEPHALIC - Eye Exam Eye Exam: EOMI, Normal appearance, PERRL Pupil Exam: NORMAL ACCOMODATION, PERRL - ENT Exam ENT Exam: Mucous Membranes Moist, Normal Exam - Neck Exam Neck Exam: Full ROM, Normal Inspection. absent: Lymphadenopathy - Respiratory Exam Respiratory Exam: Decreased Breath Sounds - Cardiovascular Exam Cardiovascular Exam: REGULAR RHYTHM, +S1, +S2 - GI/Abdominal Exam GI & Abdominal Exam: Soft, Diminished Bowel Sounds - Rectal Exam Rectal Exam: Deferred Assessment and Plan (1) Abdominal pain Status: Acute (2) Abdominal pain Status: Acute (3) Acute alcoholic pancreatitis Status: Acute (4) Asthma Status: Acute (5) Cellulitis Status: Acute (6) Cellulitis Status: Acute (7) Constipation Status: Acute (8) Contusion, hip Status: Acute (9) Drug abuse and dependence Status: Acute (10) Epigastric pain Status: Acute (11) Morales catheter in place Status: Acute (12) Hypertension Status: Acute (13) Impetigo Status: Acute (14) Nausea Status: Acute (15) Prophylactic measure Status: Acute (16) Pyelonephritis Status: Acute (17) Renal colic Status: Acute (18) Right sided abdominal pain Status: Acute (19) Seizure Status: Acute (20) UTI (urinary tract infection) Status: Acute (21) Urinary retention Status: Acute (22) Vomiting Status: Acute (23) Vomiting Status: Acute (24) Alcohol abuse Status: Chronic (25) Anxiety Status: Chronic (26) Hepatitis C infection Status: Chronic (27) Alcohol intoxication Status: Resolved - Assessment and Plan (Free Text) Plan: Patient seen and examined at bedside Events noted Hemodynamically stable Feeling better Abdominal pain improving Dilaudid Methadone Reglan DVT/GI prophylaxis
[2018-01-18] MEDS: HYDROmorphone 0.5 mg/0.5 ml ISec IVP PRN ×5 (00:19→18:42)
[2018-01-18] MEDS: Methadone 40 mg Tab PO SCH (09:33)
[2018-01-18] MEDS: Enoxaparin 40 mg Syringe SC SCH (09:33)
[2018-01-18] MEDS ORDERED: Bisacodyl 5mg EC Tab PO ONE (09:42)
[2018-01-18 11:39] LABS: BASO % 0.1 % (0.0-2.0); EOS # 0.1 K/uL (0.0-0.7); EOS % 1.5 % (0.0-4.0); HEMOGLOBIN 15.1 g/dL (11.0-16.0); LYMPH # 1.3 K/uL (1.0-4.3); LYMPH % 29.1 % (20.0-40.0); MEAN CELL VOLUME 94.2 fL (81.0-99.0); MEAN CORPUSCULAR HEMOGLOBIN 32.6 pg (27.0-31.0); MEAN CORPUSCULAR HGB CONC 34.6 g/dL (33.0-37.0); MEAN PLATELET VOLUME 8.4 fL (7.2-11.7); MONO # 0.5 K/uL (0.0-0.8); MONO % 11.2 % (0.0-10.0); NEUT # 2.5 K/uL (1.8-7.0); NEUT % 58.1 % (50.0-75.0); NRBC % 0.1 % (0.0-2.0); RBC 4.64 Mil/uL (3.80-5.20); RED CELL DISTRIBUTION WIDTH 14.9 % (11.5-14.5); WHITE BLOOD COUNT 4.4 K/uL (4.8-10.8)
[2018-01-18 11:43] LABS: BLOOD UREA NITROGEN 8 mg/dL (7-17); CALCIUM 9.9 mg/dl (8.6-10.4); GFR NON-AFRICAN AMERICAN > 60
[2018-01-18] MEDS ORDERED: LIPASE/PROTEASE/AMYLASE 21,000 U ECC PO SCH (14:00)
[2018-01-18] MEDS: LIPASE/PROTEASE/AMYLASE 21,000 U ECC PO SCH (16:31)
--- NOTE | 2018-01-18 17:50 | PN ---
DATE: 01/18/2018 LOCATION: 350, bed A. SUBJECTIVE: This is a 37-year-old female, seen early in rounds without significant clinical changes, had been on methadone with intermittent periods of complaint of severe crampy abdominal pain, mild nausea vomiting. No chest pain or palpitation. No reported active bleeding. The most recently done CAT scan of the abdomen and pelvis, yesterday report is seen indicative of moderate diffuse constipation with hepatomegaly with renal stones. Today's lab results showed normal white blood cells with normal hemoglobin and hematocrit and normal platelet count with low creatinine 0.6. The patient's serum lipase and amylase level as well as cancer markers appeared to be within normal limit. PHYSICAL EXAMINATION: GENERAL: A 37-year-old female, awake, alert and oriented. VITAL SIGNS: Afebrile with pulse of , respiratory rate 20 to 22, blood pressure of 112/80. HEENT: Showed pale, dry oral mucous membrane. Mildly, nonicteric sclerae. LUNGS: Few scattered crepitation. Decreased air entry at bases. HEART: Positive S1 and S2. ABDOMEN: Soft. Bowel sounds are present with slight generalized tenderness. No mass or organomegaly. No rebound tenderness or guarding. EXTREMITIES: Without edema, clubbing or cyanosis. IMPRESSION: 1. Change of bowel movement due to severe constipation. 2. Known history of recurrent pancreatitis as per record. 3. Chronic pain syndrome. 4. Abnormal CAT scan of the abdomen and pelvis with renal stones. SUGGESTIONS: 1. Continue current management. 2. Adjust oral intake as tolerated. Petra Crawford MD
--- NOTE | 2018-01-18 18:13 | CP.PCM.PN ---
Subjective - Date & Time of Evaluation Date of Evaluation: 01/18/18 Time of Evaluation: 08:30 - Subjective Subjective: clinically same Objective - Vital Signs/Intake and Output Vital Signs (last 24 hours): Temp Pulse Resp BP Pulse Ox 97.5 F L 60 20 138/78 95 01/18/18 16:05 01/18/18 16:05 01/18/18 16:05 01/18/18 16:05 01/18/18 16:05 Intake and Output: 01/18/18 01/18/18 06:59 18:59 Intake Total 500 Balance 500 - Medications Medications: Current Medications Docusate Sodium (Colace) 100 mg PO BID [facility] Last Admin: 01/18/18 17:29 Dose: Not Given Enoxaparin Sodium (Lovenox) 40 mg SC DAILY [facility] Last Admin: 01/18/18 09:33 Dose: Not Given Hydromorphone HCl (Dilaudid) 0.5 mg IVP Q4H PRN PRN Reason: Pain, severe (8-10) Last Admin: 01/18/18 14:33 Dose: 0.5 mg Methadone HCl (Methadose) 80 mg PO DAILY [facility] Last Admin: 01/18/18 09:33 Dose: 80 mg Metoclopramide HCl (Reglan) 10 mg IVP ACHS [facility] Last Admin: 01/18/18 16:32 Dose: 10 mg Pantoprazole Sodium (Protonix Inj) 40 mg IVP DAILY [facility] Last Admin: 01/18/18 11:29 Dose: 40 mg Pneumococcal Polyvalent Vaccine (Pneumovax 23 Vaccine) 0.5 ml IM .ONCE ONE Stop: 01/19/18 10:01 - Labs Labs: 01/18/18 11:20 01/18/18 11:20 PT 11.0 SECONDS (9.7-12.2) 01/16/18 11:44 INR 1.0 01/16/18 11:44 APTT 36 SECONDS (21-34) H 01/16/18 11:44 - Constitutional Appears: Well - Head Exam Head Exam: ATRAUMATIC, NORMAL INSPECTION, NORMOCEPHALIC - Eye Exam Eye Exam: EOMI, Normal appearance, PERRL Pupil Exam: NORMAL ACCOMODATION, PERRL - ENT Exam ENT Exam: Mucous Membranes Moist, Normal Exam - Neck Exam Neck Exam: Full ROM, Normal Inspection. absent: Lymphadenopathy - Respiratory Exam Respiratory Exam: Decreased Breath Sounds - Cardiovascular Exam Cardiovascular Exam: REGULAR RHYTHM, +S1, +S2 - GI/Abdominal Exam GI & Abdominal Exam: Soft, Diminished Bowel Sounds - Rectal Exam Rectal Exam: Deferred Assessment and Plan (1) Abdominal pain Status: Acute (2) Abdominal pain Status: Acute (3) Acute alcoholic pancreatitis Status: Acute (4) Asthma Status: Acute (5) Cellulitis Status: Acute (6) Cellulitis Status: Acute (7) Constipation Status: Acute (8) Contusion, hip Status: Acute (9) Drug abuse and dependence Status: Acute (10) Epigastric pain Status: Acute (11) Morales catheter in place Status: Acute (12) Hypertension Status: Acute (13) Impetigo Status: Acute (14) Nausea Status: Acute (15) Prophylactic measure Status: Acute (16) Pyelonephritis Status: Acute (17) Renal colic Status: Acute (18) Right sided abdominal pain Status: Acute (19) Seizure Status: Acute (20) UTI (urinary tract infection) Status: Acute (21) Urinary retention Status: Acute (22) Vomiting Status: Acute (23) Vomiting Status: Acute (24) Alcohol abuse Status: Chronic (25) Anxiety Status: Chronic (26) Hepatitis C infection Status: Chronic (27) Alcohol intoxication Status: Resolved - Assessment and Plan (Free Text) Plan: Patient hemodynamically stable No acute event overnight Plan discharge Discharge to home Follow-up as outpatient Meds as advised Resume home meds Return to ED if symptom recurs
[2018-01-19] MEDS: HYDROmorphone 0.5 mg/0.5 ml ISec IVP PRN ×3 (00:28→11:54)
[2018-01-19] MEDS: LIPASE/PROTEASE/AMYLASE 21,000 U ECC PO SCH ×2 (08:03→11:55)
[2018-01-19 08:30] VITALS: BP 119/76; PULSE 63; TEMP 97.8; O2SAT 97
[2018-01-19] MEDS: Methadone 40 mg Tab PO SCH (09:52)
[2018-01-19] MEDS: Enoxaparin 40 mg Syringe SC SCH (09:56)
[2018-01-19] MEDS ORDERED: Pneumococcal 23-Valent Vaccine IM ONE (10:00)
--- NOTE | 2018-01-19 20:20 | PN ---
DATE: 01/19/2018 LOCATION: 350, Bed A. SUBJECTIVE: This is a 37-year-old female, seen and examined in rounds without any significant clinical changes but with much less abdominal pain. No nausea, vomiting. No chest pain or palpitation or reported fever or chills. The entire chart is reviewed including but not limited to the most recent lab and radiology study results, current and the previous medication list, current and the previous medical events, and today's lab result is still pending. The patient is clinically improving. Case discussed with the staff at length. PHYSICAL EXAMINATION: GENERAL: A 37-year-old female. VITAL SIGNS: Afebrile with pulse of 62, respiratory rate of 20 to 22, blood pressure of 124/74. HEENT: Showed pale dry oral mucoid membrane. Nonicteric sclerae. LUNGS: Few scattered crepitation. Decreased air entry at bases. HEART: Positive S1 and S2. ABDOMEN: Soft with generalized mild tenderness. No mass or organomegaly. No rebound tenderness or guarding. RECTAL: The patient refused. EXTREMITIES: Without edema, clubbing, or cyanosis. NEUROLOGIC: No reported new neurological deficits, sensory or motor. IMPRESSION: 1. Recent change of bowel movement with severe constipation. 2. Renal stones. 3. Known history of recurrent pancreatitis. 4. Abnormal CAT scan of the abdomen and pelvis. SUGGESTIONS: 1. Continue current management. 2. Antireflux measure. 3. GlycoLax powder 2 tablespoons twice a day with Colace 1 tablet three times a day. 4. Follow up cancer markers. The patient may need colonoscopy, could be done as outpatient through the primary MD. Further recommendation to follow. We will follow up with you kashif Petra Crawford MD
--- NOTE | 2018-01-31 07:07 | CON ---
DATE: 01/16/2018 From Petra Crawford MD, to Dr. Lisa Lobato MD I was called for a GI consultation by the admitting medical team. The patient was seen and fully examined on 01/16/2018 as requested by the admitting medical staff. A short handwritten consultation sheet was left in the chart at the time of my GI consultation of 01/16/2018. The entire chart is reviewed including, but not limited, to the most recent lab and radiological results, current and previous medication list, current and previous medical events, allergies to medication list as well as all the available current and previous medical records. HISTORY OF PRESENT ILLNESS: This is a year-old female who was admitted to the hospital through the emergency room with a main complaint of severe crampy abdominal pain for the last few days for which she was recently admitted to [facility], but she has recurrent symptoms of nausea, dyspepsia, abdominal pain, postprandial abdominal distention and vomiting. The patient has a recent history of acute pancreatitis, recurrent. PAST MEDICAL HISTORY: Including, 1. Peptic ulcer disease. 2. Recurrent pancreatitis. 3. Hypertension. 4. Renal stones. The patient has a history of also bronchial asthma and severe anxiety syndrome with seizure disorder. FAMILY HISTORY: Unknown. SOCIAL HISTORY: Positive for alcohol intake and cigarette smoking. MEDICATION LIST: Post-admission medication list reviewed. LABORATORY DATA: Initial blood results at the time of the admission showed low white blood cells of 4.2 with normal hemoglobin and hematocrit with low creatinine and reported somewhat elevated serum lipase and amylase levels. PHYSICAL EXAMINATION: GENERAL: A year-old female appeared to be awake, alert, oriented, complaining of severe abdominal pain, reported by the nursing staff asked for recurrent antipain medication on a regular basis. VITAL SIGNS: Afebrile with pulse of 70, respiratory rate of 20 to 22. Blood pressure of 118/72. HEENT: Showed pale dry oral mucous membrane. Nonicteric sclerae. LYMPH NODES: No lymphadenitis or lymphadenopathy. LUNGS: Few scattered crepitation. Decreased air entry at bases. HEART: Positive S1 and S2. ABDOMEN: Soft with generalized tenderness. No mass or organomegaly and no rebound tenderness or guarding. NEUROLOGICAL: No reported new neurological deficits, sensory or motor. IMPRESSION: 1. Re-exacerbation of peptic ulcer disease. 2. Recurrent acute pancreatitis; unclear etiology, could be alcohol induced. 3. Rule out hyperlipidemia-induced acute pancreatitis. SUGGESTIONS: 1. Continue current management. 2. MRCP. 3. Repeat serum lipase, amylase levels. 4. Lipid profile. 5. The patient may need psychiatric reevaluation and pain management consultation. 6. Proton pump inhibitors IV. 7. Carafate liquid p.o. 8. Reglan IV. 9. Further evaluation to follow. Petra Crawford MD
== END 2018-01-19 13:50 | disposition home or self-care (01) | DRG 182 ==
LOC: C.ER 14:58 → C.9E 18:57 → C.3T 23:30 → OBSVTOIN 01-17 20:56
PROVIDERS: ADMIT Internal Medicine Nephrology; ATTEND Internal Medicine Nephrology
DX: K59.09 Other constipation (principal); F11.20 Opioid dependence, uncomplicated; N18.9 Chronic kidney disease, unspecified; I12.9 Hypertensive chronic kidney disease with stage 1 through stage 4 chronic kidney disease, or unspecified chronic kidney disease; J45.909 Unspecified asthma, uncomplicated; K86.1 Other chronic pancreatitis; R16.0 Hepatomegaly, not elsewhere classified; N20.0 Calculus of kidney; G89.4 Chronic pain syndrome